=== PATIENT | male | born 1940 | race Caucasian/White ===

== ENCOUNTER 2017-07-28 16:38 | Emergency (ER) | payer MEDICARE, BC ==
--- NOTE | 2017-07-28 16:55 | EDM.PDOC ---
ED HPI GENERAL MEDICAL PROBLEM - General Chief Complaint: General Stated Complaint: [id number] FELL AT HOME BROKEN RIB? Time Seen by Provider: 07/28/17 16:50 Source of Information: Reports: Patient, Family (Two adult women) History Limitations: Reports: No Limitations - History of Present Illness INITIAL COMMENTS - FREE TEXT/NARRATIVE: 77 yo white male w/ Multiple Medical problems brought in by family stating that he became unsteady upon rising at 10 AM and w/o his walker he fell onto left side w/ c/o left lower rib pain. No LOC. Family members present Onset: Today Onset Date: 07/28/17 Onset Time: 10:00 Duration: Hour(s): Location: Reports: Chest (left lower ) Quality: Reports: Ache Severity: Moderate Improves with: Reports: Rest Worsens with: Reports: Movement Context: Reports: Trauma Associated Symptoms: Reports: No Other Symptoms - Related Data Allergies Allergy/AdvReac Type Severity Reaction Status Date / Time [id number] Reductase AdvReac Severe Severe Verified 07/30/16 06:54 Inhibitor muscle aches to all statins. Home Meds: Home Meds Gemfibrozil 600 mg PO BIDAC 09/18/13 [History] Insulin NPH Hum/Reg Insulin Hm [Novolin 70-30 100 Unit/ml Vial] 18 units SUBCUT BIDAC 09/18/13 [History] Lisinopril 5 mg PO DAILY 09/18/13 [History] Mycophenolate [Myfortic] 720 mg PO BID 09/18/13 [History] risperiDONE [RisperiDAL] 2 mg PO BEDTIME 09/18/13 [History] Tacrolimus 1 mg PO BID 10/06/13 [History] Acetaminophen [Tylenol Extra Strength] 500 mg PO Q6H PRN 04/09/14 [History] Aspirin [Ecotrin] 81 mg PO DAILY 04/09/14 [History] Glucosamine [Glucosamine Sulfate] 1,000 mg PO BID 04/09/14 [History] Docusate Sodium [Colace] 100 mg PO DAILY PRN 06/04/16 [History] Magnesium Oxide [Magnesium] 400 mg PO PCDINNER 06/04/16 [History] Magnesium Oxide [Magnesium] 800 mg PO DAILY 06/04/16 [History] Metoprolol Succinate [Toprol XL] 50 mg PO DAILY 06/04/16 [History] Tamsulosin [Flomax] 0.8 mg PO DAILY 06/04/16 [History] Warfarin Sodium [Jantoven] 2 mg PO DAILY 06/04/16 [History] Past Medical History HEENT History: Reports: Impaired Vision Cardiovascular History: Reports: Heart Valve Replacement, High Cholesterol, Hypertension, Stents Respiratory History: Reports: None Gastrointestinal History: Reports: None Genitourinary History: Reports: Other (See Below) Other Genitourinary History: hx kidney transplant Musculoskeletal History: Reports: None Neurological History: Reports: None Psychiatric History: Reports: Depression Endocrine/Metabolic History: Reports: Diabetes, Type I Hematologic History: Reports: Anemia Immunologic History: Reports: None Oncologic (Cancer) History: Reports: Basal Cell Carcinoma, Renal, Other (See Below) Other Oncologic History: renal transplant Dermatologic History: Reports: Other (See Below) Other Dermatologic History: skin cancer left cheek - Infectious Disease History Infectious Disease History: Reports: None - Past Surgical History Male Surgical History: Reports: Nephrectomy Social & Family History - Family History Family Medical History: Noncontributory - Tobacco Use Smoking Status *Q: Never Smoker Years of Tobacco use: 15 Used Tobacco, but Quit: Yes Month Tobacco Last Used: August Second Hand Smoke Exposure: No - Caffeine Use Caffeine Use: Reports: Coffee - Alcohol Use Days Per Week of Alcohol Use: 0 - Recreational Drug Use Recreational Drug Use: No - Living Situation & Occupation Living situation: Reports: , with Family Occupation: Disabled ED ROS GENERAL - Review of Systems Review Of Systems: See Below Constitutional: Reports: Weakness HEENT: Reports: No Symptoms Respiratory: Reports: No Symptoms Cardiovascular: Reports: No Symptoms Endocrine: Reports: No Symptoms GI/Abdominal: Reports: No Symptoms : Reports: No Symptoms Musculoskeletal: Reports: Other (left lower rib pain) Skin: Reports: No Symptoms Neurological: Reports: Difficulty Walking, Weakness, Gait Disturbance Psychiatric: Reports: No Symptoms Hematologic/Lymphatic: Reports: No Symptoms Immunologic: Reports: No Symptoms ED EXAM, GENERAL - Physical Exam Exam: See Below General Appearance: Alert, No Apparent Distress Eye Exam: Bilateral Eye: EOMI, PERRL Ears: Normal External Exam Nose: Normal Inspection Throat/Mouth: Normal Inspection, Normal Lips Head: Atraumatic, Normocephalic Neck: Normal Inspection, Supple, Full Range of Motion Respiratory/Chest: No Respiratory Distress, Lungs Clear, Other (left lower chest wall tenderness) Cardiovascular: Normal Peripheral Pulses, Regular Rate, Rhythm, No Edema Peripheral Pulses: 2+: Radial (L), Radial (R) GI/Abdominal: Normal Bowel Sounds, Soft Back Exam: Normal Inspection Extremities: Normal Inspection, Normal Range of Motion Neurological: Alert Psychiatric: Normal Affect Skin Exam: Warm, Dry Lymphatic: No Adenopathy Course - Vital Signs Text/Narrative:: CT Head Negative for Bleed CXR WNL - Orders/Labs/Meds Orders: Active Orders 24 hr Category Date Time Status EKG Documentation Completion [RC] STAT Care 07/28/17 16:46 Active URINALYSIS W/MICROSCOPIC [UA W/MICROSCOPIC] [URIN] Stat Lab 07/28/17 18:00 Results Labs: Laboratory Tests 07/28/17 07/28/17 07/28/17 Range/Units 16:59 16:59 16:59 WBC 8.9 (5.0-10.0) 10^3/uL RBC 3.50 L (4.6-6.2) 10^6/uL Hgb 9.9 L (14.0-18.0) g/dL Hct 31.0 L (40.0-54.0) % MCV 88.6 (80-100) fL MCH 28.3 (27.0-34.0) pg MCHC 31.9 L (33.0-35.0) g/dL Plt Count 259 (150-450) 10^3/uL Neut % (Auto) 80.0 H (42.2-75.2) % Lymph % (Auto) 8.6 L (20.5-50.1) % [place] % (Auto) 10.9 H (2-8) % Eos % (Auto) 0.2 L (1.0-3.0) % Baso % (Auto) 0.3 (0.0-1.0) % PT 30.7 H (9.0-12.0) SEC INR 3.0 H (0.9-1.2) APTT 38.7 H (22.0-34.0) SEC Sodium 134 L (135-145) mmol/L Potassium 5.0 (3.6-5.0) mmol/L Chloride 102 (101-111) mmol/L Carbon Dioxide 21.0 (21.0-31.0) mmol/L Anion Gap 16.0 BUN 33 H (7-18) mg/dL Creatinine 1.6 H (0.6-1.3) mg/dL Est Cr Clr Drug Dosing TNP Estimated GFR (MDRD) 42 BUN/Creatinine Ratio 20.62 Glucose 151 H (74-105) mg/dL Calcium 10.0 (8.4-10.2) mg/dl Total Bilirubin 0.8 (0.2-1.0) mg/dL AST 21 (10-42) IU/L ALT 13 (10-60) IU/L Alkaline Phosphatase 93 (42-121) IU/L Troponin I 0.02 (0.00-0.02) ng/ml Total Protein 7.4 (6.7-8.2) g/dl Albumin 4.0 (3.2-5.5) g/dl Globulin 3.4 Albumin/Globulin Ratio 1.18 Urine Color (YELLOW) Urine Appearance (CLEAR) Urine pH (5.0-9.0) Ur Specific Crum (1.005-1.030) Urine Protein (NEGATIVE) Urine Glucose (UA) (NEGATIVE) Urine Ketones (NEGATIVE) Urine Occult Blood (NEGATIVE) Urine Nitrite (NEGATIVE) Urine Bilirubin (NEGATIVE) Urine Urobilinogen (0.2-1.0) mg/dL Ur Leukocyte Esterase (NEGATIVE) 07/28/ Range/Units 18:00 WBC (5.0-10.0) 10^3/uL RBC (4.6-6.2) 10^6/uL Hgb (14.0-18.0) g/dL Hct (40.0-54.0) % MCV (80-100) fL MCH (27.0-34.0) pg MCHC (33.0-35.0) g/dL Plt Count (150-450) 10^3/uL Neut % (Auto) (42.2-75.2) % Lymph % (Auto) (20.5-50.1) % [place] % (Auto) (2-8) % Eos % (Auto) (1.0-3.0) % Baso % (Auto) (0.0-1.0) % PT (9.0-12.0) SEC INR (0.9-1.2) APTT (22.0-34.0) SEC Sodium (135-145) mmol/L Potassium (3.6-5.0) mmol/L Chloride (101-111) mmol/L Carbon Dioxide (21.0-31.0) mmol/L Anion Gap BUN (7-18) mg/dL Creatinine (0.6-1.3) mg/dL Est Cr Clr Drug Dosing Estimated GFR (MDRD) BUN/Creatinine Ratio Glucose (74-105) mg/dL Calcium (8.4-10.2) mg/dl Total Bilirubin (0.2-1.0) mg/dL AST (10-42) IU/L ALT (10-60) IU/L Alkaline Phosphatase (42-121) IU/L Troponin I (0.00-0.02) ng/ml Total Protein (6.7-8.2) g/dl Albumin (3.2-5.5) g/dl Globulin Albumin/Globulin Ratio Urine Color Yellow (YELLOW) Urine Appearance Cloudy (CLEAR) Urine pH 7.0 (5.0-9.0) Ur Specific Crum 1.015 (1.005-1.030) Urine Protein 100 H (NEGATIVE) Urine Glucose (UA) 100 H (NEGATIVE) Urine Ketones Negative (NEGATIVE) Urine Occult Blood Trace-lysed H (NEGATIVE) Urine Nitrite Negative (NEGATIVE) Urine Bilirubin Negative (NEGATIVE) Urine Urobilinogen 0.2 (0.2-1.0) mg/dL Ur Leukocyte Esterase Negative (NEGATIVE) Departure - Departure Time of Disposition: 18:22 Disposition: Home, Self-Care 01 Condition: Good Clinical Impression: Gait instability Fall Qualifiers: Encounter type: initial encounter Qualified Code(s): W19.XXXA - Unspecified fall, initial encounter Contusion of left chest wall Qualifiers: Encounter type: initial encounter Qualified Code(s): S20.212A - Contusion of left front wall of thorax, initial encounter Head contusion Qualifiers: Encounter type: initial encounter Contusion of head detail: scalp Qualified Code(s): S00.03XA - Contusion of scalp, initial encounter - Discharge Information Forms: ED Department Discharge Additional Instructions: Rest Apply Ice Pack to areas of pain TID X 15 mins For Pain: TYLENOL EXTRA STRENGTH 500mg QID (otc) ALWAYS USE GAIT ASSIST DEVICES WHEN STANDING ie.( WALKER ) F/U w/ PCP - My Orders Last 24 Hours: My Active Orders 07/28/17 16:46 EKG Documentation Completion [RC] STAT 07/28/17 18:00 URINALYSIS W/MICROSCOPIC [UA W/MICROSCOPIC] [URIN] Stat - Assessment/Plan Last 24 Hours: My Active Orders 07/28/17 16:46 EKG Documentation Completion [RC] STAT 07/28/17 18:00 URINALYSIS W/MICROSCOPIC [UA W/MICROSCOPIC] [URIN] Stat
[2017-07-28 17:28] LABS: CHLORIDE,CL 102 mmol/L (101-111); SODIUM,NA 134 mmol/L (135-145)
--- NOTE | 2017-08-01 15:00 | EKG ---
07/28/2017 - JOHAN JOLLEY - FINDINGS: This 12-lead EKG shows a normal sinus rhythm with a ventricular rate of 76. First-degree AV block. Left bundle-branch block. [facility] /[id number]
== END 2017-07-28 18:37 | disposition home or self-care (01) ==
LOC: DL.ED 16:38
DX: S20.212A Contusion of left front wall of thorax, initial encounter (principal); S00.03XA Contusion of scalp, initial encounter; R26.9 Unspecified abnormalities of gait and mobility; I10 Essential (primary) hypertension; E10.9 Type 1 diabetes mellitus without complications; Z79.4 Long term (current) use of insulin; Z79.82 Long term (current) use of aspirin; Z79.01 Long term (current) use of anticoagulants; Z79.899 Other long term (current) drug therapy; W19.XXXA Unspecified fall, initial encounter
CPT/HCPCS: 36415; 70450; 71010; 80053; 81001; 84484; 85025; 85610; 85730; 87086; 87088; 87186; 93005; 93010; 99284; 99291; 99292

== ENCOUNTER 2017-10-21 12:59 | Inpatient (IN) | payer MEDICARE, BC ==
[2017-10-21] MEDS ORDERED: Acetaminophen 325 MG Tab PO PRN (14:38)
[2017-10-21] MEDS ORDERED: Acetaminophen 500 MG Tab PO PRN (14:50)
[2017-10-21] MEDS ORDERED: Docusate Sodium 100 MG Cap PO PRN (14:50)
[2017-10-21] MEDS ORDERED: Furosemide 40 MG/4 ML VIAL IVPUSH PRN (14:59)
--- NOTE | 2017-10-21 15:07 | PCM.HP ---
H&P History of Present Illness - General Date of Service: 10/21/17 Admit Problem/Dx: Admission Diagnosis/Problem Admission Diagnosis/Problem Weakness of right upper extremity Source of Information: Patient, Family History Limitations: Reports: No Limitations - History of Present Illness Initial Comments - Free Text/Narative: Abdoul Taverasis a 77 y.o. male with multiple comorbid including AoVR , DM , CAD, renal transplant, CKD, chronic anemia. He was transferred from clinic account of progressive weakness and acute on chronic anemia. Patient was seen in the clinic as a routine follow up. The spouse who accompanied patient reported patient is getting progressively weak. She notes similar episode in the past for which he was given transfusion for anemia and was wondering if patient is anemic. Labs in the clinic revealed Hb of 8.4 down from 9.3 in 2017. He was supra therapeutic at >5 with no active bleeding. He denies any evidence of bleeding. 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 He denies melena, hematochezia, abdominal pain, hematuria. Patient is on warfarin anticoagulation for aortic valve replacement. Spouse also reports weight loss over the period. She notes patient generally has not been eating well but his appetite has decreased over the past few weeks. Patient denies anorexia, abdominal pain, nausea, vomiting, fever or chills. No chest pain or SOB. No h/o of falls. Onset of Symptoms: Reports: Gradual Duration of Symptoms: Reports: Week(s): Location: Reports: Generalized Severity: Moderate Improves with: Reports: None Worsens with: Reports: None Associated Symptoms: Reports: No Other Symptoms - Related Data Allergies/Adverse Reactions: Allergies Allergy/AdvReac Type Severity Reaction Status Date / Time [id number]-Ibu Reductase AdvReac Severe Severe Verified 10/21/17 13:58 Inhibitor muscle aches to all statins. Home Medications: Home Meds Gemfibrozil 600 mg PO BID 09/18/13 [History] Insulin NPH Hum/Reg Insulin Hm [Novolin 70-30 100 Unit/ml Vial] 12 units SUBCUT WITHBREAKFAST 09/18/13 [History] Lisinopril 5 mg PO BEDTIME 09/18/13 [History] Mycophenolate [Myfortic] 720 mg PO BID 09/18/13 [History] risperiDONE [RisperiDAL] 2 mg PO BEDTIME 09/18/13 [History] Tacrolimus 1 mg PO BID 10/06/13 [History] Acetaminophen [Tylenol Extra Strength] 500 mg PO Q6H PRN 04/09/14 [History] Aspirin [Ecotrin] 81 mg PO DAILY 04/09/14 [History] Docusate Sodium [Colace] 100 mg PO DAILY PRN 06/04/16 [History] Metoprolol Succinate [Toprol XL] 25 mg PO DAILY 06/04/16 [History] Tamsulosin [Flomax] 0.8 mg PO BEDTIME 06/04/16 [History] Warfarin Sodium [Jantoven] 2 mg PO BEDTIME 06/04/16 [History] Amoxicillin/Potassium Clav [Amox Tr-K Clv 875-125 mg Tab] 1 tab PO Q12H [History] Insulin Asp Prot/Insulin Asp [NovoLOG Mix 70-30] 10 units SQ BEDTIME 10/21/17 [ History] Magnesium 200 mg PO DAILY 10/21/17 [History] Past Medical History HEENT History: Reports: Cataract, Hard of Hearing, Impaired Vision, Other (See Below) Other 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, torn retina Cardiovascular History: Reports: Heart Valve Replacement, High Cholesterol, Hypertension, Stents Respiratory History: Reports: None Gastrointestinal History: Reports: None Genitourinary History: Reports: Urinary Incontinence, Other (See Below) Other Genitourinary History: hx kidney transplant Musculoskeletal History: Reports: Arthritis, Fracture Neurological History: Reports: None Psychiatric History: Reports: Depression Endocrine/Metabolic History: Reports: Diabetes, Type I Hematologic History: Reports: Anemia Immunologic History: Reports: None Oncologic (Cancer) History: Reports: Basal Cell Carcinoma, Renal, Other (See Below) Other Oncologic History: renal transplant, left cheek and right ear CA Dermatologic History: Reports: Other (See Below) Other Dermatologic History: skin cancer left cheek, skin CA right ear - Infectious Disease History Infectious Disease History: Reports: Shingles - Past Surgical History HEENT Surgical History: Reports: Cataract Surgery, Other (See Below) Other HEENT Surgeries/Procedures: skin CA surgery right ear, eye lid surgery Cardiovascular Surgical History: Reports: Valve Replacement, Other (See Below) Other Cardiovascular Surgeries/Procedures: cardiac stents GI Surgical History: Reports: None Male Surgical History: Reports: Nephrectomy Endocrine Surgical History: Reports: None Musculoskeletal Surgical History: Reports: Hip Replacement Dermatological Surgical History: Reports: Skin Biopsy Social & Family History - Family History Family Medical History: Noncontributory - Tobacco Use Smoking Status *Q: Former Smoker Years of Tobacco use: 15 Used Tobacco, but Quit: Yes Month Tobacco Last Used: August Second Hand Smoke Exposure: No - Caffeine Use Caffeine Use: Reports: Coffee, Soda - Alcohol Use Days Per Week of Alcohol Use: 0 - Recreational Drug Use Recreational Drug Use: No - Living Situation & Occupation Living situation: Reports: , with Family Occupation: Disabled H&P Review of Systems - Review of Systems: Review Of Systems: See Below General: Reports: No Symptoms HEENT: Reports: No Symptoms Pulmonary: Reports: No Symptoms Cardiovascular: Reports: No Symptoms Gastrointestinal: Reports: No Symptoms Genitourinary: Reports: No Symptoms Musculoskeletal: Reports: No Symptoms Skin: Reports: No Symptoms Psychiatric: Reports: No Symptoms Neurological: Reports: No Symptoms Hematologic/Lymphatic: Reports: No Symptoms Immunologic: Reports: No Symptoms Exam - Exam Exam: See Below - Vital Signs Weight: 136 lb 12.8 oz - Exam General: Alert, Oriented, 4 HEENT: Conjunctiva Clear, EACs Clear, EOMI, Hearing Intact, Mucosa Moist & [place] , Nares Patent, Normal Nasal Septum, Posterior Pharynx Clear, TMs Clear, Scleral Icterus, PERRLA Neck: Supple, Trachea Midline, 2 Lungs: Clear to Auscultation, Normal Respiratory Effort Cardiovascular: Regular Rate, Regular Rhythm GI/Abdominal Exam: Normal Bowel Sounds, Soft, Non-Tender, No Organomegaly, No Distention, No Abnormal Bruit, No Mass, Pelvis Stable (Male) Exam: No Hernia, Normal Inspection, Normal Prostate, Circumcised Rectal (Males) Exam: Normal Exam, Normal Rectal Tone, Prostate Normal Back Exam: Normal Inspection, Full Range of Motion, NT Extremities: Normal Inspection, Normal Range of Motion, Non-Tender, No Pedal Edema, Normal Capillary Refill Skin: Warm, Dry, Intact Neurological: Cranial Nerves Intact, Reflexes Equal Bilateral Neuro Extensive - Mental Status: Alert, Oriented x3, Normal Mood/Affect, Normal Cognition Neuro Extensive - Motor, Sensory, Reflexes: CN II-XII Intact, Normal Gait, Normal Reflexes Psychiatric: Alert, Normal Affect, Normal Mood - Patient Data Result Diagrams: 10/21/17 15:12 10/21/17 15:12 *Q Meaningful Use (ADM) - VTE *Q VTE Criteria *Q: VTE Mechanical Contraindications *Q: At Risk for Falls - Stroke *Q Stroke Criteria *Q: - AMI *Q AMI Criteria *Q: - Problem List (1) Weakness generalized SNOMED Code(s): 12920186 ICD Code: R53.1 - WEAKNESS Status: Acute Priority: High Current Visit: Yes (2) Anemia SNOMED Code(s): 070092630 ICD Code: D64.9 - ANEMIA, UNSPECIFIED Status: Acute Priority: High Current Visit: Yes Problem List Initiated/Reviewed/Updated: Yes Orders Last 24hrs: Active Orders 24 hr Category Date Time Status Patient Status [ADT] Routine ADT 10/21/17 14:38 Ordered Antiembolic Devices [RC] PER UNIT ROUTINE Care 10/21/17 14:48 Ordered Bedrest Bathroom Privileges [RC] ASDIRECTED Care 10/21/17 14:38 Ordered Cardiac Monitoring [RC] CONTINUOUS Care 10/21/17 14:43 Ordered Oxygen Therapy [RC] PRN Care 10/21/17 14:38 Ordered Up With Assistance [RC] ASDIRECTED Care 10/21/17 14:38 Ordered Up to Chair [RC] ASDIRECTED Care 10/21/17 14:38 Ordered VTE/DVT Education [RC] PER UNIT ROUTINE Care 10/21/17 14:38 Ordered Vital Signs [RC] Q4H Care 10/21/17 14:38 Ordered Regular Diet [DIET] Diet 10/21/17 Dinner Ordered BASIC METABOLIC PANEL,BMP [CHEM] Routine Lab 10/21/17 14:38 Ordered CBC WITH AUTO DIFF [HEME] Routine Lab 10/21/17 14:38 Ordered HEPATIC FUNCTION PANEL,HFP [CHEM] Routine Lab 10/21/17 14:38 Ordered PHOSPHORUS [CHEM] Routine Lab 10/21/17 14:57 Ordered TYPE AND SCREEN [BBK] Routine Lab 10/21/17 14:57 Ordered Acetaminophen [Tylenol Extra Strength] Med 10/21/17 14:50 Ordered 500 mg PO Q6H PRN Amoxicillin/Clavulanate K [Augmentin 875 MG/125 MG] Med 10/21/17 15:00 Ordered 1 tab PO Q12H Aspirin [Halfprin] Med 10/22/17 09:00 Ordered 81 mg PO DAILY Docusate Sodium [Colace] Med 10/21/17 14:50 Ordered 100 mg PO DAILY PRN Furosemide [Lasix] Med 10/21/17 14:59 Ordered 40 mg IVPUSH ASDIRECTED PRN Gemfibrozil [Lopid] Med 10/21/17 21:00 Ordered 600 mg PO BID Insulin Asp Prot/Insulin Asp [NovoLOG Mix 70-30] Med 10/21/17 21:00 Ordered 10 units SQ BEDTIME Insulin NPH/Insulin Reg,Human [NovoLIN 70-30] Med 10/22/17 08:00 Ordered 12 unit SUBCUT WITHBREAKFAST Lisinopril [Prinivil] Med 10/21/17 21:00 Ordered 5 mg PO BEDTIME Magnesium [Magnesium] Med 10/22/17 09:00 Ordered 200 mg PO DAILY Metoprolol Succinate [Toprol XL] Med 10/22/17 09:00 Ordered 25 mg PO DAILY Mycophenolate [Myfortic] Med 10/21/17 21:00 Ordered 720 mg PO BID Tacrolimus Med 10/21/17 21:00 Ordered 1 mg PO BID Tamsulosin [Flomax] Med 10/21/17 21:00 Ordered 0.8 mg PO BEDTIME risperiDONE [RisperiDAL] Med 10/21/17 21:00 Ordered 2 mg PO BEDTIME Sequential Compression Device [OM.PC] Per Unit Routine Oth 10/21/17 14:46 Ordered Transfuse PRBC [Transfuse Red Blood Cells] [COMM] Oth 10/21/17 14:57 Ordered Routine VTE Mechanical Contraindications [AST] Per Unit Routine Oth 10/21/17 14:38 Ordered Resuscitation Status Routine Resus Stat 10/21/17 14:38 Ordered Medication Orders Acetaminophen (Tylenol Extra Strength) 500 mg PO Q6H PRN PRN Reason: Pain Amoxicillin/Clavulanate Potassium (Augmentin 875 Mg/125 Mg) 1 tab PO Q12HR CHARLES Stop: 10/27/17 21:01 Aspirin (Halfprin) 81 mg PO DAILY CHARLES Docusate Sodium (Colace) 100 mg PO DAILY PRN PRN Reason: Constipation Furosemide (Lasix) 40 mg IVPUSH ASDIRECTED PRN PRN Reason: fluid overload Gemfibrozil (Lopid) 600 mg PO BIDAC CHARLES Insulin Human Isoph/Insulin Regular (Novolin 70-30) 12 unit SUBCUT WITHBREAKFAST CHARLES Lisinopril (Prinivil) 5 mg PO BEDTIME CHARLES Metoprolol Succinate (Toprol Xl) 25 mg PO DAILY CHARLES Non-Formulary Medication (Insulin Asp Prot/Insulin Asp [Novolog Mix 70-30]) 10 units SQ BEDTIME CHARLES Non-Formulary Medication (Magnesium [Magnesium]) 200 mg PO DAILY CHARLES Non-Formulary Medication (Mycophenolate [Myfortic]) 720 mg PO BID CHARLES Non-Formulary Medication (Tacrolimus) 1 mg PO BID CHARLES Risperidone (Risperidal) 2 mg PO BEDTIME CHARLES Tamsulosin HCl (Flomax) 0.8 mg PO BEDTIME CHARLES Assessment/Plan Comment:: Assessment/Plan #Acute on chronic anemia. Etiology unclear -Patient presented with Hb of 8.4 <<9.3. -Repeat Hb was 6.7 -Patient is supra therapeutic but not actively bleeding -Type and screen -Stool occult screen -Transfuse with 2 units of pRBC -Post transfusion h/h -Monitor h/h q4h -Iron studies, Folate, Vit B12, TSH #Generalized weakness. -This might be due to acute anemia -will transfuse as above -PT/OT #Supra therapeutic INR -Patient not actively bleeding -Will give Vit K 5 mg PO -Daily INR -Hold Coumadin for now #DM-II -Controlled -Monitor FSG 4x daily -Reconcile home medication #S/p AVR -Hold off Coumadin in view of supra therapeutic INR #h/o CAD -Stable. Patient has no chest pain -resume home medications #s/p renal transplant -Resume home immunosuppresants #CDK -Stable cratinin and GFR -monitor renal functions #Diet -Regular #DVT ppx -SCD #Code status -DNI/DNR
[2017-10-21] MEDS ORDERED: Phytonadione ORAL 2.5mg/2.5ml Soln Simple Syrup U/D PO ONE (15:42)
[2017-10-21] MEDS: Amoxicillin/Clavulanate K 875-125 MG Tab PO SCH ×2 (15:42→20:38)
[2017-10-21 15:49] LABS: ANION GAP 12.7
[2017-10-21] MEDS ORDERED: Sodium Chloride 0.9% 10 ML Syringe FLUSH PRN (16:13)
[2017-10-21] MEDS: Gemfibrozil 600 MG Tab PO SCH (16:58)
[2017-10-21] MEDS: Insulin Aspart 100 Units/ML 3 ML Pen SUBCUT SCH ×2 (17:17→21:26)
[2017-10-21] MEDS: TACROLIMUS 1 MG PO SCH (20:36)
[2017-10-21] MEDS: MYCOPHENOLIC ACID 360 MG PO SCH (20:37)
[2017-10-21] MEDS ORDERED: Tamsulosin 0.4 MG Cap.ER PO SCH (21:00)
[2017-10-21] MEDS ORDERED: INSULIN ASPART SQ SCH (21:00)
[2017-10-21] MEDS ORDERED: Simethicone 80 MG Tab.Chew PO ONE (21:00)
[2017-10-21] MEDS ORDERED: INSULIN ASPART PROTAMINE SQ SCH (21:00)
[2017-10-21] MEDS ORDERED: [UNRECOGNIZED DRUG - OTHER] SQ SCH (21:00)
[2017-10-21] MEDS ORDERED: Lisinopril 5 MG Tab PO SCH (21:00)
[2017-10-21] MEDS ORDERED: risperiDONE 1 MG Tab PO SCH (21:00)
[2017-10-22] MEDS: Gemfibrozil 600 MG Tab PO SCH (05:45)
[2017-10-22] MEDS ORDERED: Simethicone 80 MG Tab.Chew PO ONE (06:00)
[2017-10-22] MEDS ORDERED: Insulin NPH/Insulin Regular,Human 70-30 100 Units/ML 10 ML Vial SUBCUT SCH (08:00)
[2017-10-22] MEDS ORDERED: Aspirin 81 MG Tab.EC PO SCH (09:00)
[2017-10-22] MEDS ORDERED: Metoprolol Succinate 25 MG Tab.ER PO SCH (09:00)
[2017-10-22] MEDS ORDERED: Phytonadione ORAL 2.5mg/2.5ml Soln Simple Syrup U/D PO ONE (09:04)
[2017-10-22] MEDS: TACROLIMUS 1 MG PO SCH (09:20)
[2017-10-22] MEDS: MYCOPHENOLIC ACID 360 MG PO SCH (09:20)
[2017-10-22] MEDS: Amoxicillin/Clavulanate K 875-125 MG Tab PO SCH (09:21)
--- NOTE | 2017-10-22 09:32 | US ---
Clinical history: 77-year-old male with history "kidney transplant" and abnormally elevated liver fun ction tests. Interpretation: Liver homogeneously dense, normal size and anatomic configuration without discrete intrahepatic cysti c or solid mass lesion or abnormal dilatation of the intra/extrahepatic biliary ducts (common hepatic duct 4.9 mm and the common bile duct 7.8 mm diameter). Gallbladder distended in the right upper quadrant shows no sign of pericystic fluid, mucosal wall corey yp or mobile dependent intraluminal echogenic "shadowing" gallstones. Pancreas fractionally visualized (technically "difficult" patient who could not move or hold breath). No ascites. Neither kidney satisfactorily demonstrated. CONCLUSION: No intrahepatic abnormalities. Normal gallbladder. No ascites.
[2017-10-22] MEDS: Insulin Aspart 100 Units/ML 3 ML Pen SUBCUT SCH ×2 (09:40→11:29)
[2017-10-22] MEDS ORDERED: Pantoprazole 40 MG in Sodium Chloride 0.9% 100 ML IV SCH (10:00)
[2017-10-22] MEDS ORDERED: Sodium Chloride 0.9% 1,000 ML IV SCH (10:00)
[2017-10-22] MEDS ORDERED: Pantoprazole 40 MG Vial IVPUSH SCH (10:15)
--- NOTE | 2017-10-22 11:42 | PCM.DCSUM1 ---
Discharge Summary - Hospital Course HPI Initial Comments: Abdoul Taverasis a 77 y.o. male with multiple comorbid including AoVR , DM , CAD, renal transplant, CKD, chronic anemia. He was transferred from clinic on account of progressive weakness and acute on chronic anemia. Patient was seen in the clinic as a routine follow up. The spouse who accompanied patient reported patient is getting progressively weak. She reproted similar episode in the past for which he was given transfusion for anemia and was wondering if patient is anemic. Labs in the clinic revealed Hb of 8.4 down from 9.3 in 2017. He was supra therapeutic at >5 with no active bleeding. Repeat cbc on admission revealed further drop in Hb to 6.3. He denied any evidence of bleeding. 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 He denied melena, hematochezia, abdominal pain, hematuria. Patient is on warfarin anticoagulation for aortic valve replacement. He was admitted for acute on chronic anemia. He recieved 2 units of pRBC. Post trasnfusion Hb was 10.1. Occult blood screen overnight was positive. INR this morning was 6.5. PAtient has recived 10 mg of Vit. K. On evaluation this morning he denies active bleeding per rectum but abdominal appears distended. He is being transfer to [facility] for furher evaluation. - Discharge Data Discharge Date: 10/22/17 Discharge Disposition: DC/Tfer to Acute Hospital 02 Condition: Good - Discharge Diagnosis/Problem(s) (1) Weakness generalized SNOMED Code(s): 90654954 ICD Code: R53.1 - WEAKNESS Status: Acute Priority: High Current Visit: Yes (2) Anemia SNOMED Code(s): 314323761 ICD Code: D64.9 - ANEMIA, UNSPECIFIED Status: Acute Priority: High Current Visit: Yes (3) GI bleed SNOMED Code(s): 00763454 ICD Code: K92.2 - GASTROINTESTINAL HEMORRHAGE, UNSPECIFIED Status: Acute Current Visit: Yes Qualifiers: GI bleed type/associated pathology: unspecified gastrointestinal hemorrhage type Qualified Code(s): K92.2 - Gastrointestinal hemorrhage, unspecified (4) GI bleed SNOMED Code(s): 43376630 ICD Code: K92.2 - GASTROINTESTINAL HEMORRHAGE, UNSPECIFIED Status: Acute Current Visit: Yes - Discharge Plan Home Medications: Home Meds Gemfibrozil 600 mg PO BID 09/18/13 [History] Lisinopril 5 mg PO BEDTIME 09/18/13 [History] Mycophenolate [Myfortic] 720 mg PO BID 09/18/13 [History] risperiDONE [RisperiDAL] 2 mg PO BEDTIME 09/18/13 [History] Tacrolimus 1 mg PO BID 10/06/13 [History] Acetaminophen [Tylenol Extra Strength] 500 mg PO Q6H PRN 04/09/14 [History] Aspirin [Ecotrin] 81 mg PO DAILY 04/09/14 [History] Docusate Sodium [Colace] 100 mg PO DAILY PRN 06/04/16 [History] Metoprolol Succinate [Toprol XL] 25 mg PO DAILY 06/04/16 [History] Tamsulosin [Flomax] 0.8 mg PO BEDTIME 06/04/16 [History] Warfarin Sodium [Jantoven] 2 mg PO BEDTIME 06/04/16 [History] Amoxicillin/Potassium Clav [Amox Tr-K Clv 875-125 mg Tab] 1 tab PO Q12H [History] Insulin Asp Prot/Insulin Asp [NovoLOG Mix 70-30] 10 units SQ BEDTIME 10/21/17 [ History] Insulin Asp Prot/Insulin Asp [NovoLOG Mix 70-30] 12 units SQ WITHBREAKFAST 10/21 [History] Magnesium 200 mg PO DAILY 10/21/17 [History] - Discharge Summary/Plan Comment DC Time >30 min.: Yes Discharge Summary/Plan Comment: Transfer to [facility] for further evaluation. - General Info Admission Dx/Problem (Free Text: Admission Diagnosis/Problem Admission Diagnosis/Problem Weakness of right upper extremity Functional Status: Reports: Pain Controlled - Review of Systems General: Reports: No Symptoms HEENT: Reports: No Symptoms Pulmonary: Reports: No Symptoms Cardiovascular: Reports: No Symptoms Gastrointestinal: Reports: No Symptoms Genitourinary: Reports: No Symptoms Musculoskeletal: Reports: No Symptoms Skin: Reports: No Symptoms Neurological: Reports: No Symptoms Psychiatric: Reports: No Symptoms - Patient Data Vitals - Most Recent: Last Vital Signs Temp 98.4 F 10/22/17 07:00 Pulse 80 10/22/17 09:23 Resp 20 10/22/17 07:00 BP 150/83 H 10/22/17 09:23 Pulse Ox 99 10/22/17 07:00 Weight - Most Recent: 136 lb 12.8 oz I&O - Last 24 hours: Intake & Output 10/21/17 10/22/17 10/22/17 22:59 06:59 14:59 Intake Total 549 850 Output Total 200 1000 Balance 349 -150 Lab Results - Last 24 hrs: Laboratory Results - last 24 hr 10/21/17 10/21/17 10/21/17 Range/Units 15:12 15:12 15:12 WBC 4.6 L (5.0-10.0) 10^3/uL RBC 2.44 L (4.6-6.2) 10^6/uL Hgb 6.9 L D (14.0-18.0) g/dL Hct 20.8 L* (40.0-54.0) % MCV 85.2 D (80-100) fL MCH 28.3 (27.0-34.0) pg MCHC 33.2 (33.0-35.0) g/dL Plt Count 236 (150-450) 10^3/uL Neut % (Auto) 81.2 H (42.2-75.2) % Lymph % (Auto) 5.7 L (20.5-50.1) % Lane % (Auto) 12.9 H (2-8) % Eos % (Auto) 0.0 L (1.0-3.0) % Baso % (Auto) 0.2 (0.0-1.0) % PT (9.0-12.0) SEC INR (0.9-1.2) Sodium 132 L (135-145) mmol/L Potassium 3.7 (3.6-5.0) mmol/L Chloride 104 (101-111) mmol/L Carbon Dioxide 19.0 L (21.0-31.0) mmol/L Anion Gap 12.7 BUN 30 H (7-18) mg/dL Creatinine 1.4 H (0.6-1.3) mg/dL Est Cr Clr Drug Dosing 36.13 mL/min Estimated GFR (MDRD) 49 Glucose 144 H (74-105) mg/dL POC Glucose (83-110) mg/dl Calcium 9.0 (8.4-10.2) mg/dl Phosphorus 3.0 (2.5-4.6) mg/dL Total Bilirubin 3.9 H (0.2-1.0) mg/dL Direct Bilirubin 2.4 H (0.0-0.2) mg/dL Indirect Bilirubin 1.5 AST 37 (10-42) IU/L ALT 29 (10-60) IU/L Alkaline Phosphatase 483 H (42-121) IU/L Total Protein 5.7 L (6.7-8.2) g/dl Albumin 2.6 L (3.2-5.5) g/dl Globulin 3.1 Albumin/Globulin Ratio 0.84 Urine Color (YELLOW) Urine Appearance (CLEAR) Urine pH (5.0-9.0) Ur Specific Glen (1.005-1.030) Urine Protein (NEGATIVE) Urine Glucose (UA) (NEGATIVE) Urine Ketones (NEGATIVE) Urine Occult Blood (NEGATIVE) Urine Nitrite (NEGATIVE) Urine Bilirubin (NEGATIVE) Urine Urobilinogen (0.2-1.0) mg/dL Ur Leukocyte Esterase (NEGATIVE) Urine RBC /HPF Urine WBC (0-5/HPF) /HPF Ur Epithelial Cells /HPF Urine Bacteria (0-FEW/HPF) /HPF Blood Type Gel Antibody Screen Crossmatch 10/21/17 10/21/17 10/21/17 Range/Units 15:12 16:49 18:25 WBC (5.0-10.0) 10^3/uL RBC (4.6-6.2) 10^6/uL Hgb (14.0-18.0) g/dL Hct (40.0-54.0) % MCV (80-100) fL MCH (27.0-34.0) pg MCHC (33.0-35.0) g/dL Plt Count (150-450) 10^3/uL Neut % (Auto) (42.2-75.2) % Lymph % (Auto) (20.5-50.1) % Lane % (Auto) (2-8) % Eos % (Auto) (1.0-3.0) % Baso % (Auto) (0.0-1.0) % PT (9.0-12.0) SEC INR (0.9-1.2) Sodium (135-145) mmol/L Potassium (3.6-5.0) mmol/L Chloride (101-111) mmol/L Carbon Dioxide (21.0-31.0) mmol/L Anion Gap BUN (7-18) mg/dL Creatinine (0.6-1.3) mg/dL Est Cr Clr Drug Dosing mL/min Estimated GFR (MDRD) Glucose (74-105) mg/dL POC Glucose 180 H (83-110) mg/dl Calcium (8.4-10.2) mg/dl Phosphorus (2.5-4.6) mg/dL Total Bilirubin (0.2-1.0) mg/dL Direct Bilirubin (0.0-0.2) mg/dL Indirect Bilirubin AST (10-42) IU/L ALT (10-60) IU/L Alkaline Phosphatase (42-121) IU/L Total Protein (6.7-8.2) g/dl Albumin (3.2-5.5) g/dl Globulin Albumin/Globulin Ratio Urine Color Dark yellow (YELLOW) Urine Appearance Turbid (CLEAR) Urine pH 5.0 (5.0-9.0) Ur Specific [place] 1.015 (1.005-1.030) Urine Protein 100 H (NEGATIVE) Urine Glucose (UA) Negative (NEGATIVE) Urine Ketones Negative (NEGATIVE) Urine Occult Blood Small H (NEGATIVE) Urine Nitrite Negative (NEGATIVE) Urine Bilirubin Moderate H (NEGATIVE) Urine Urobilinogen 1.0 (0.2-1.0) mg/dL Ur Leukocyte Esterase Small H (NEGATIVE) Urine RBC 0-5 /HPF Urine WBC 10-20 H (0-5/HPF) /HPF Ur Epithelial Cells Few /HPF Urine Bacteria Many H (0-FEW/HPF) /HPF Blood Type B POSITIVE Gel Antibody Screen Negative Crossmatch See Detail 10/21/17 10/22/17 10/22/17 Range/Units 21:13 03:15 07:12 WBC (5.0-10.0) 10^3/uL RBC (4.6-6.2) 10^6/uL Hgb 10.0 L D (14.0-18.0) g/dL Hct (40.0-54.0) % MCV (80-100) fL MCH (27.0-34.0) pg MCHC (33.0-35.0) g/dL Plt Count (150-450) 10^3/uL Neut % (Auto) (42.2-75.2) % Lymph % (Auto) (20.5-50.1) % Lane % (Auto) (2-8) % Eos % (Auto) (1.0-3.0) % Baso % (Auto) (0.0-1.0) % PT (9.0-12.0) SEC INR (0.9-1.2) Sodium (135-145) mmol/L Potassium (3.6-5.0) mmol/L Chloride (101-111) mmol/L Carbon Dioxide (21.0-31.0) mmol/L Anion Gap BUN (7-18) mg/dL Creatinine (0.6-1.3) mg/dL Est Cr Clr Drug Dosing mL/min Estimated GFR (MDRD) Glucose (74-105) mg/dL POC Glucose 241 H 293 H (83-110) mg/dl Calcium (8.4-10.2) mg/dl Phosphorus (2.5-4.6) mg/dL Total Bilirubin (0.2-1.0) mg/dL Direct Bilirubin (0.0-0.2) mg/dL Indirect Bilirubin AST (10-42) IU/L ALT (10-60) IU/L Alkaline Phosphatase (42-121) IU/L Total Protein (6.7-8.2) g/dl Albumin (3.2-5.5) g/dl Globulin Albumin/Globulin Ratio Urine Color (YELLOW) Urine Appearance (CLEAR) Urine pH (5.0-9.0) Ur Specific [place] (1.005-1.030) Urine Protein (NEGATIVE) Urine Glucose (UA) (NEGATIVE) Urine Ketones (NEGATIVE) Urine Occult Blood (NEGATIVE) Urine Nitrite (NEGATIVE) Urine Bilirubin (NEGATIVE) Urine Urobilinogen (0.2-1.0) mg/dL Ur Leukocyte Esterase (NEGATIVE) Urine RBC /HPF Urine WBC (0-5/HPF) /HPF Ur Epithelial Cells /HPF Urine Bacteria (0-FEW/HPF) /HPF Blood Type Gel Antibody Screen Crossmatch 10/22/17 10/22/17 10/22/17 Range/Units 07:18 07:18 10:58 WBC (5.0-10.0) 10^3/uL RBC (4.6-6.2) 10^6/uL Hgb 10.1 L (14.0-18.0) g/dL Hct (40.0-54.0) % MCV (80-100) fL MCH (27.0-34.0) pg MCHC (33.0-35.0) g/dL Plt Count (150-450) 10^3/uL Neut % (Auto) (42.2-75.2) % Lymph % (Auto) (20.5-50.1) % Lane % (Auto) (2-8) % Eos % (Auto) (1.0-3.0) % Baso % (Auto) (0.0-1.0) % PT 70.0 H (9.0-12.0) SEC INR 6.9 H* (0.9-1.2) Sodium (135-145) mmol/L Potassium (3.6-5.0) mmol/L Chloride (101-111) mmol/L Carbon Dioxide (21.0-31.0) mmol/L Anion Gap BUN (7-18) mg/dL Creatinine (0.6-1.3) mg/dL Est Cr Clr Drug Dosing mL/min Estimated GFR (MDRD) Glucose (74-105) mg/dL POC Glucose 345 H (83-110) mg/dl Calcium (8.4-10.2) mg/dl Phosphorus (2.5-4.6) mg/dL Total Bilirubin (0.2-1.0) mg/dL Direct Bilirubin (0.0-0.2) mg/dL Indirect Bilirubin AST (10-42) IU/L ALT (10-60) IU/L Alkaline Phosphatase (42-121) IU/L Total Protein (6.7-8.2) g/dl Albumin (3.2-5.5) g/dl Globulin Albumin/Globulin Ratio Urine Color (YELLOW) Urine Appearance (CLEAR) Urine pH (5.0-9.0) Ur Specific Glen (1.005-1.030) Urine Protein (NEGATIVE) Urine Glucose (UA) (NEGATIVE) Urine Ketones (NEGATIVE) Urine Occult Blood (NEGATIVE) Urine Nitrite (NEGATIVE) Urine Bilirubin (NEGATIVE) Urine Urobilinogen (0.2-1.0) mg/dL Ur Leukocyte Esterase (NEGATIVE) Urine RBC /HPF Urine WBC (0-5/HPF) /HPF Ur Epithelial Cells /HPF Urine Bacteria (0-FEW/HPF) /HPF Blood Type Gel Antibody Screen Crossmatch DANTE Results - Last 24 hrs: Microbiology 10/21/17 18:25 Stool Occult Blood (DANTE) - Final Stool / Feces Med Orders - Current: Current Medications Acetaminophen (Tylenol Extra Strength) 500 mg PO Q6H PRN PRN Reason: Pain Amoxicillin/Clavulanate Potassium (Augmentin 875 Mg/125 Mg) 1 tab PO Q12HR [facility] Stop: 10/27/17 21:01 Last Admin: 10/22/17 09:21 Dose: 1 tab Aspirin (Halfprin) 81 mg PO DAILY [facility] Last Admin: 10/22/17 09:23 Dose: 81 mg Docusate Sodium (Colace) 100 mg PO DAILY PRN PRN Reason: Constipation Furosemide (Lasix) 40 mg IVPUSH ASDIRECTED PRN PRN Reason: fluid overload Last Admin: 10/21/17 22:28 Dose: 40 mg Gemfibrozil (Lopid) 600 mg PO BIDAC [facility] Last Admin: 10/22/17 05:45 Dose: 600 mg Sodium Chloride (Normal Saline) 1,000 mls @ 75 mls/hr IV ASDIRECTED [facility] Last Admin: 10/22/17 10:17 Dose: 75 mls/hr Insulin Aspart (Novolog) 0 unit SUBCUT QIDACANDBED [facility] PRN Reason: Protocol Last Admin: 10/22/17 11:29 Dose: 5 units Lisinopril (Prinivil) 5 mg PO BEDTIME [facility] Last Admin: 10/21/17 20:36 Dose: 5 mg Magnesium Oxide (Magnesium Oxide) 250 mg PO DAILY [facility] Last Admin: 10/22/17 09:22 Dose: 250 mg Metoprolol Succinate (Toprol Xl) 25 mg PO DAILY [facility] Last Admin: 10/22/17 09:23 Dose: 25 mg Pantoprazole Sodium (Protonix Iv) 40 mg IVPUSH BID [facility] Last Admin: 10/22/17 10:22 Dose: 40 mg Mycophenolic Acid 360 Mg- Pt's Own Med 0 each PO BID [facility] Last Admin: 10/22/17 09:20 Dose: 1 each Tacrolimus 1 Mg Pt ('s Own Med) 0 each PO BID [facility] Last Admin: 10/22/17 09:20 Dose: 1 each Risperidone (Risperidal) 2 mg PO BEDTIME [facility] Last Admin: 10/21/17 20:35 Dose: 2 mg Sodium Chloride (Saline Flush) 10 ml FLUSH ASDIRECTED PRN PRN Reason: Keep Vein Open Last Admin: 10/21/17 22:27 Dose: 10 ml Tamsulosin HCl (Flomax) 0.8 mg PO BEDTIME [facility] Last Admin: 10/21/17 20:36 Dose: 0.8 mg Discontinued Medications Acetaminophen (Tylenol) 650 mg PO Q6H PRN PRN Reason: Pain (Mild 1-3)/fever Insulin Human Isoph/Insulin Regular (Novolin 70-30) 12 unit SUBCUT WITHBREAKFAST [facility] Non-Formulary Medication (Insulin Asp Prot/Insulin Asp [Novolog Mix 70-30]) 10 units SQ BEDTIME [facility] Phytonadione (Aquamephyton) 5 mg PO ONETIME ONE Stop: 10/21/17 15:43 Last Admin: 10/21/17 15:57 Dose: 5 mg Phytonadione (Aquamephyton) 5 mg PO ONETIME ONE Stop: 10/22/17 09:05 Last Admin: 10/22/17 09:40 Dose: 5 mg Simethicone (Simethicone) 160 mg PO ONETIME ONE Stop: 10/21/17 21:01 Last Admin: 10/21/17 20:33 Dose: 160 mg Simethicone (Simethicone) 80 mg PO ONETIME ONE Stop: 10/22/17 06:01 Last Admin: 10/22/17 05:44 Dose: 80 mg - Exam General: Reports: Alert, Oriented, Mild Distress HEENT: Reports: Pupils Equal, Pupils Reactive, EOMI, Mucous Membr. Moist/[place] Neck: Reports: Supple Lungs: Reports: Clear to Auscultation, Normal Respiratory Effort Cardiovascular: Reports: Regular Rate, Regular Rhythm GI/Abdominal Exam: Normal Bowel Sounds, Soft, Non-Tender, No Organomegaly, No Distention, No Abnormal Bruit, No Mass, Pelvis Stable, Distended (Male) Exam: No Hernia, Normal Inspection, Normal Prostate, Circumcised Rectal (Males) Exam: Normal Exam, Normal Rectal Tone, Prostate Normal Back Exam: Reports: Normal Inspection, Full Range of Motion Extremities: Normal Inspection, Normal Range of Motion, Non-Tender, No Pedal Edema, Normal Capillary Refill Skin: Reports: Warm, Dry, Intact Wound/Incisions: Reports: Healing Well Neurological: Reports: No New Focal Deficit Psy/Mental Status: Reports: Alert, Normal Affect, Normal Mood EKG INTERPRETATION Rhythm: NSR [place]: Normal P-Wave: Present QRS: Normal ST-T: Normal QT: Normal *Q Meaningful Use (DIS) - VTE *Q VTE Criteria *Q: VTE Mechanical Contraindications *Q: At Risk for Falls - Stroke *Q Stroke Criteria *Q: - AMI *Q AMI Criteria *Q:
[2017-10-22 11:43] VITALS: BP 135/85
== END 2017-10-22 11:55 | DRG 812 ==
LOC: DL.MS 13:18
PROVIDERS: ADMIT Student in an Organized Health Care Education/Training Program; ATTEND Student in an Organized Health Care Education/Training Program
PROC: 30233N1 Transfusion of Nonautologous Red Blood Cells into Peripheral Vein, Percutaneous Approach (ICD-10-PCS; principal; 2017-10-21)
DX: D64.9 Anemia, unspecified (principal); K92.2 Gastrointestinal hemorrhage, unspecified; Z94.0 Kidney transplant status; R53.1 Weakness; Z79.1 Long term (current) use of non-steroidal anti-inflammatories (NSAID); E10.9 Type 1 diabetes mellitus without complications; Z95.2 Presence of prosthetic heart valve; I25.10 Atherosclerotic heart disease of native coronary artery without angina pectoris; I12.9 Hypertensive chronic kidney disease with stage 1 through stage 4 chronic kidney disease, or unspecified chronic kidney disease; N18.9 Chronic kidney disease, unspecified; Z95.5 Presence of coronary angioplasty implant and graft; H91.91 Unspecified hearing loss, right ear; H54.40 Blindness, one eye, unspecified eye; M11.9 Crystal arthropathy, unspecified; F32.9 Major depressive disorder, single episode, unspecified; Z87.891 Personal history of nicotine dependence; Z88.8 Allergy status to other drugs, medicaments and biological substances; Z79.01 Long term (current) use of anticoagulants; Z79.82 Long term (current) use of aspirin; Z79.4 Long term (current) use of insulin; Z79.899 Other long term (current) drug therapy
CPT/HCPCS: 36415; 36430; 76705; 80048; 80076; 81001; 82272; 82607; 82728; 82746; 82962; 83540; 83550; 84100; 85018; 85025; 85610; 86850; 86900; 86901; 86920; 86922; A9270-GY; C9113; J1815-GY; J1940; J7030; J7050; P9016

== ENCOUNTER 2017-10-30 15:23 | Inpatient (IN) | payer MEDICARE, BC ==
--- NOTE | 2017-10-30 14:37 | EDM.PDOC ---
ED HPI GENERAL MEDICAL PROBLEM - General Chief Complaint: Trauma Stated Complaint: SHELIA CODE IN BY AMBULANCE Time Seen by Provider: 10/30/17 14:15 Source of Information: Reports: EMS, Family History Limitations: Reports: Altered Mental Status - History of Present Illness INITIAL COMMENTS - FREE TEXT/NARRATIVE: This 77 yo male patient was brought to the ED by [facility] due to a fall in the bathroom and shortness of breath. EMS reports the patient has been having increased shortness of breath over the past week. The patient arrived on a LSB with no c-collar or head blocks applied. The patient has a laceration above his right eye. The patient's airway was open, spontaneous breathing with no profuse bleeding. The patient responded to verbal stimuli, but speech was not easily understood. The patient was moved from the EMS cot to the ED bed while on the back board. Once on the ED bed, the patient was log rolled (with c-spine precautions) to remove the backboard. The patient has a history of kidney failure (on dialysis), diabetes and a GI bleed. The patient's reports that the patient has been short of breath over the past couple of days with the wheezing starting today. The patient was in the [facility] yesterday to see Dr. Miranda. The patient's reports that the patient was in the hospital in [place] (got out of the hospital last Saturday) due to his blood being too thin (getting vitamin K). The patient's reports that the patient was in the bathroom when he lost his balance and fell. The patient his his right elbow on the counter and right eye on the tub. The reports no loss of consciousness before, during or after the incident. Onset: Today Duration: Constant Location: Reports: Head (right eye laceration), Upper Extremity, Right (skin tear right elbow) Quality: Reports: Other Severity: Moderate Improves with: Reports: None Worsens with: Reports: None Associated Symptoms: Reports: Shortness of Breath (with a wheeze) - Related Data Allergies Allergy/AdvReac Type Severity Reaction Status Date / Time [id number]-Fdf Reductase AdvReac Severe Severe Verified 10/21/17 13:58 Inhibitor muscle aches to all statins. Home Meds: Home Meds Gemfibrozil 600 mg PO BID 09/18/13 [History] Lisinopril 5 mg PO BEDTIME 09/18/13 [History] Mycophenolate [Myfortic] 720 mg PO BID 09/18/13 [History] risperiDONE [RisperiDAL] 2 mg PO BEDTIME 09/18/13 [History] Tacrolimus 1 mg PO BID 10/06/13 [History] Acetaminophen [Tylenol Extra Strength] 500 mg PO Q6H PRN 04/09/14 [History] Aspirin [Ecotrin] 81 mg PO DAILY 04/09/14 [History] Docusate Sodium [Colace] 100 mg PO DAILY PRN 06/04/16 [History] Metoprolol Succinate [Toprol XL] 25 mg PO DAILY 06/04/16 [History] Tamsulosin [Flomax] 0.8 mg PO BEDTIME 06/04/16 [History] Warfarin Sodium [Jantoven] 2 mg PO BEDTIME 06/04/16 [History] Amoxicillin/Potassium Clav [Amox Tr-K Clv 875-125 mg Tab] 1 tab PO Q12H [History] Insulin Asp Prot/Insulin Asp [NovoLOG Mix 70-30] 10 units SQ BEDTIME 10/21/17 [ History] Insulin Asp Prot/Insulin Asp [NovoLOG Mix 70-30] 12 units SQ WITHBREAKFAST 10/21 [History] Magnesium 200 mg PO DAILY 10/21/17 [History] Past Medical History HEENT History: Reports: Impaired Vision Cardiovascular History: Reports: Heart Valve Replacement, High Cholesterol, Hypertension, Stents Respiratory History: Reports: None Gastrointestinal History: Reports: None Genitourinary History: Reports: Other (See Below) Other Genitourinary History: hx kidney transplant Musculoskeletal History: Reports: None Neurological History: Reports: None Psychiatric History: Reports: Depression Endocrine/Metabolic History: Reports: Diabetes, Type I Hematologic History: Reports: Anemia Immunologic History: Reports: None Oncologic (Cancer) History: Reports: Basal Cell Carcinoma, Renal, Other (See Below) Other Oncologic History: renal transplant Dermatologic History: Reports: Other (See Below) Other Dermatologic History: skin cancer left cheek - Infectious Disease History Infectious Disease History: Reports: None - Past Surgical History Male Surgical History: Reports: Nephrectomy Social & Family History - Family History Family Medical History: Noncontributory - Tobacco Use Smoking Status *Q: Never Smoker Years of Tobacco use: 15 Used Tobacco, but Quit: Yes Month Tobacco Last Used: [employer] Second Hand Smoke Exposure: No - Caffeine Use Caffeine Use: Reports: Coffee - Alcohol Use Days Per Week of Alcohol Use: 0 - Recreational Drug Use Recreational Drug Use: No - Living Situation & Occupation Living situation: Reports: , with Family Occupation: Disabled Review of Systems - Review of Systems Review Of Systems: ROS reveals no pertinent complaints other than HPI. ED EXAM, GENERAL - Physical Exam Exam: See Below Exam Limited By: Altered Mental Status ( reports the mentation is normal for the patient) General Appearance: Alert, WD/WN, Moderate Distress Eye Exam: Bilateral Eye: EOMI, PERRL Ears: Normal Canal, Hearing Grossly Normal, Normal TMs, Other (Moh's surgery right ear (CA) normal stages of healing) Nose: Normal Inspection, Normal Mucosa, No Blood Throat/Mouth: Normal Inspection, Normal Lips, Normal Teeth, Normal Gums, Normal Oropharynx, Normal Voice, No Airway Compromise Head: Other (laceration to right eyebrow) Neck: Normal Inspection, Supple, Non-Tender, Full Range of Motion Respiratory/Chest: Decreased Breath Sounds, Rhonchi (diffuse), Wheezing (diffuse ) Cardiovascular: Normal Peripheral Pulses, Regular Rate, Rhythm, No Edema, No Gallop, No JVD, No Murmur, No Rub GI/Abdominal: Normal Bowel Sounds, Soft, Non-Tender, No Organomegaly, No Distention, No Abnormal Bruit, No Mass (Male) Exam: Deferred Rectal (Males) Exam: Deferred Back Exam: Normal Inspection, Full Range of Motion, NT Extremities: Normal Inspection, Normal Range of Motion, Non-Tender, Normal Capillary Refill, No Pedal Edema Neurological: Alert, Oriented, CN II-XII Intact, Normal Cognition, Normal Gait, Normal Reflexes, No Motor/Sensory Deficits Psychiatric: Normal Affect, Normal Mood Skin Exam: Warm, Dry, Intact, Normal Color, No Rash Lymphatic: No Adenopathy Course - Orders/Labs/Meds Orders: Active Orders 24 hr Category Date Time Status EKG Documentation Completion [RC] URGENT Care 10/30/17 14:23 Active Cervical Spine wo Cont [CT] Urgent Exams 10/30/17 14:23 Taken Head wo Cont [CT] Urgent Exams 10/30/17 14:23 Taken CULTURE BLOOD [BC] Stat Lab 10/30/17 14:25 Ordered CULTURE BLOOD [BC] Stat Lab 10/30/17 14:25 Received UA W/MICROSCOPIC [URIN] Stat Lab 10/30/17 14:23 Ordered Levofloxacin/Dextrose 5%-Water [Levaquin in D5W 750 MG/ Med 10/30/17 15:16 Ordered 150 ML] 750 mg Premix Bag 1 bag IV ONETIME Blood Culture x2 Reflex Set [OM.PC] Stat Oth 10/30/17 14:23 Ordered Medication Orders Levofloxacin/Dextrose 750 mg/ (Premix) 150 mls @ 100 mls/hr IV ONETIME ONE Stop: 10/30/17 16:45 Labs: Laboratory Tests 10/30/17 10/30/17 10/30/17 Range/Units 14:25 14:25 14:25 WBC 18.5 H (5.0-10.0) 10^3/uL RBC 4.10 L (4.6-6.2) 10^6/uL Hgb 11.8 L D (14.0-18.0) g/dL Hct 35.8 L (40.0-54.0) % MCV 87.3 (80-100) fL MCH 28.8 (27.0-34.0) pg MCHC 33.0 (33.0-35.0) g/dL Plt Count 206 (150-450) 10^3/uL Neut % (Auto) 85.6 H (42.2-75.2) % Lymph % (Auto) 2.3 L (20.5-50.1) % Wise % (Auto) 11.7 H (2-8) % Eos % (Auto) 0.0 L (1.0-3.0) % Baso % (Auto) 0.4 (0.0-1.0) % PT 11.1 D (9.0-12.0) SEC INR 1.1 (0.9-1.2) Sodium (135-145) mmol/L Potassium (3.6-5.0) mmol/L Chloride (101-111) mmol/L Carbon Dioxide (21.0-31.0) mmol/L Anion Gap BUN (7-18) mg/dL Creatinine (0.6-1.3) mg/dL Est Cr Clr Drug Dosing Estimated GFR (MDRD) BUN/Creatinine Ratio Glucose (74-105) mg/dL Lactic Acid 3.4 H (0.5-2.2) mmol/L Calcium (8.4-10.2) mg/dl Total Bilirubin (0.2-1.0) mg/dL AST (10-42) IU/L ALT (10-60) IU/L Alkaline Phosphatase (42-121) IU/L Troponin I (0.00-0.02) ng/ml Total Protein (6.7-8.2) g/dl Albumin (3.2-5.5) g/dl Globulin Albumin/Globulin Ratio 10/30/17 Range/Units 14:25 WBC (5.0-10.0) 10^3/uL RBC (4.6-6.2) 10^6/uL Hgb (14.0-18.0) g/dL Hct (40.0-54.0) % MCV (80-100) fL MCH (27.0-34.0) pg MCHC (33.0-35.0) g/dL Plt Count (150-450) 10^3/uL Neut % (Auto) (42.2-75.2) % Lymph % (Auto) (20.5-50.1) % Wise % (Auto) (2-8) % Eos % (Auto) (1.0-3.0) % Baso % (Auto) (0.0-1.0) % PT (9.0-12.0) SEC INR (0.9-1.2) Sodium 136 (135-145) mmol/L Potassium 4.7 (3.6-5.0) mmol/L Chloride 100 L (101-111) mmol/L Carbon Dioxide 23.0 (21.0-31.0) mmol/L Anion Gap 17.7 BUN 57 H D (7-18) mg/dL Creatinine 1.9 H (0.6-1.3) mg/dL Est Cr Clr Drug Dosing TNP Estimated GFR (MDRD) 35 BUN/Creatinine Ratio 30.00 Glucose 128 H (74-105) mg/dL Lactic Acid (0.5-2.2) mmol/L Calcium 9.5 (8.4-10.2) mg/dl Total Bilirubin 10.9 H (0.2-1.0) mg/dL AST 63 H (10-42) IU/L ALT 49 (10-60) IU/L Alkaline Phosphatase 683 H (42-121) IU/L Troponin I 0.08 H* (0.00-0.02) ng/ml Total Protein 6.5 L (6.7-8.2) g/dl Albumin 3.0 L (3.2-5.5) g/dl Globulin 3.5 Albumin/Globulin Ratio 0.86 Meds: Medications Generic Name Dose Route Start Last Admin Trade Name Freq PRN Reason Stop Dose Admin Levofloxacin/Dextrose 750 mg/ 150 mls @ 100 mls/hr 10/30/17 15:16 Premix IV 10/30/17 16:45 ONETIME ONE Departure - Departure Time of Disposition: 15:18 Disposition: Admitted As Inpatient 67 Condition: Serious Clinical Impression: Bronchitis Leukocytosis Qualifiers: Leukocytosis type: bandemia Qualified Code(s): D72.825 - Bandemia - Discharge Information Care Plan Goals: Discussed the examination, lab, CT and x-ray results with Dr. Castañeda. Dr. Castañeda accepted the patient for continued evaluation and further management as an inpatient at [facility]. The patient was started on Levaquin while in the ED. - My Orders Last 24 Hours: My Active Orders 10/30/17 14:23 EKG Documentation Completion [RC] URGENT Cervical Spine wo Cont [CT] Urgent Head wo Cont [CT] Urgent UA W/MICROSCOPIC [URIN] Stat Blood Culture x2 Reflex Set [OM.PC] Stat 10/30/17 14:25 CULTURE BLOOD [BC] Stat CULTURE BLOOD [BC] Stat 10/30/17 15:16 Levofloxacin/Dextrose 5%-Water [Levaquin in D5W 750 MG/150 ML] 750 mg Premix Bag 1 bag IV ONETIME - Assessment/Plan Last 24 Hours: My Active Orders 10/30/17 14:23 EKG Documentation Completion [RC] URGENT Cervical Spine wo Cont [CT] Urgent Head wo Cont [CT] Urgent UA W/MICROSCOPIC [URIN] Stat Blood Culture x2 Reflex Set [OM.PC] Stat 10/30/17 14:25 CULTURE BLOOD [BC] Stat CULTURE BLOOD [BC] Stat 10/30/17 15:16 Levofloxacin/Dextrose 5%-Water [Levaquin in D5W 750 MG/150 ML] 750 mg Premix Bag 1 bag IV ONETIME
[2017-10-30 14:55] LABS: CHLORIDE,CL 100 mmol/L (101-111); SODIUM,NA 136 mmol/L (135-145)
[~2017-10-30 15:23] MED LIST: Levofloxacin/Dextrose 5%-Water 750 MG in Premix Bag 1 BAG IV ONE
[2017-10-30] MEDS ORDERED: Sodium Chloride 0.9% 10 ML Syringe FLUSH PRN (16:33)
[2017-10-30] MEDS ORDERED: Zolpidem 5 MG Tab PO PRN (16:33)
--- NOTE | 2017-10-30 16:42 | PCM.HP ---
H&P History of Present Illness - General Date of Service: 10/30/17 Admit Problem/Dx: Admission Diagnosis/Problem Admission Diagnosis/Problem Palliative care Source of Information: Family (), Provider (er), Other (Critical access hospital records) - History of Present Illness Initial Comments - Free Text/Narative: The patient is a 77-year-old gentleman with complicated medical history including liver transplant, diabetes, valve replacement on chronic anticoagulation. The patient was recently admitted to [facility] and noted to have elevated INR, low hemoglobin. There was occult positive stool but no evidence of ongoing GI bleed noted. The anemia was also evaluated by hematology for possible hemolysis but this was not confirmed by lab testing. He was noted to have elevated bilirubin and alkaline phosphatase. The patient was seen by GI specialist who recommended outpatient workup. The patient was discharged on 25 October. And it seemed it for a day or 2 he was doing good but then started to complain of increased shortness of breath. On 30 October patient fell in the bathroom, injured the elbow and the right side of the face. There was no apparent loss of consciousness. There was no wheezing noted. The patient was brought into the emergency room. The patient is lethargic and difficult to understand his speech. He was noted to have a deep icterus. Noted to have leukocytosis. - Related Data Allergies/Adverse Reactions: Allergies Allergy/AdvReac Type Severity Reaction Status Date / Time Haodhru-Fyf-Jcj Reductase AdvReac Severe Severe Verified 10/30/17 16:35 Inhibitor muscle aches to all statins. Home Medications: Home Meds Gemfibrozil 600 mg PO BID 09/18/13 [History] Lisinopril 5 mg PO BEDTIME 09/18/13 [History] Mycophenolate [Myfortic] 720 mg PO BID 09/18/13 [History] risperiDONE [RisperiDAL] 2 mg PO BEDTIME 09/18/13 [History] Tacrolimus 1 mg PO BID 10/06/13 [History] Acetaminophen [Tylenol Extra Strength] 500 mg PO Q6H PRN 04/09/14 [History] Aspirin [Ecotrin] 81 mg PO DAILY 04/09/14 [History] Docusate Sodium [Colace] 100 mg PO DAILY PRN 06/04/16 [History] Metoprolol Succinate [Toprol XL] 25 mg PO DAILY 06/04/16 [History] Tamsulosin [Flomax] 0.8 mg PO BEDTIME 06/04/16 [History] Warfarin Sodium [Jantoven] 2 mg PO BEDTIME 06/04/16 [History] Amoxicillin/Potassium Clav [Amox Tr-K Clv 875-125 mg Tab] 1 tab PO Q12H [History] Insulin Asp Prot/Insulin Asp [NovoLOG Mix 70-30] 10 units SQ BEDTIME 10/21/17 [ History] Insulin Asp Prot/Insulin Asp [NovoLOG Mix 70-30] 12 units SQ WITHBREAKFAST 10/21 [History] Magnesium 200 mg PO DAILY 10/21/17 [History] Past Medical History HEENT History: Reports: Impaired Vision Cardiovascular History: Reports: Heart Valve Replacement, High Cholesterol, Hypertension, Stents Respiratory History: Reports: None Gastrointestinal History: Reports: None Genitourinary History: Reports: Other (See Below) Other Genitourinary History: hx kidney transplant Musculoskeletal History: Reports: None Neurological History: Reports: None Psychiatric History: Reports: Depression Endocrine/Metabolic History: Reports: Diabetes, Type I Hematologic History: Reports: Anemia Immunologic History: Reports: None Oncologic (Cancer) History: Reports: Basal Cell Carcinoma, Renal, Other (See Below) Other Oncologic History: renal transplant Dermatologic History: Reports: Other (See Below) Other Dermatologic History: skin cancer left cheek - Infectious Disease History Infectious Disease History: Reports: None - Past Surgical History Male Surgical History: Reports: Nephrectomy Social & Family History - Family History Family Medical History: Noncontributory - Tobacco Use Smoking Status *Q: Never Smoker Years of Tobacco use: 15 Used Tobacco, but Quit: Yes Month Tobacco Last Used: August Second Hand Smoke Exposure: No - Caffeine Use Caffeine Use: Reports: Coffee - Alcohol Use Days Per Week of Alcohol Use: 0 - Recreational Drug Use Recreational Drug Use: No - Living Situation & Occupation Living situation: Reports: , with Family Occupation: Disabled H&P Review of Systems - Review of Systems: Review Of Systems: See Below General: Reports: Weakness, Fatigue. Denies: Fever Pulmonary: Reports: Shortness of Breath, Wheezing Cardiovascular: Denies: Chest Pain, Edema Gastrointestinal: Reports: Distension. Denies: Abdominal Pain Skin: Reports: Jaundice Psychiatric: Reports: Other (Lethargy) Neurological: Reports: Other (Has dysarthria but moving extremities and following commands) Exam - Exam Exam: See Below - Exam Quality Assessment: Supplemental Oxygen General: Alert, Other (Difficult to communicate due to dysarthria). No: Oriented HEENT: Scleral Icterus Lungs: Decreased Breath Sounds (Has very little air movement). No: Wheezing Cardiovascular: Regular Rate, Regular Rhythm GI/Abdominal Exam: Distended, Other (I believe the patient has tense ascites). No: Tender Extremities: No: Pedal Edema Skin: Warm, Ecchymosis, Other (Small laceration right side of the head and elbow , deep icterus) Neuro Extensive - Mental Status: Other (Dysarthria, lethargic) - Patient Data Result Diagrams: 10/30/17 14:25 10/30/17 14:25 *Q Meaningful Use (ADM) - VTE *Q VTE Criteria *Q: - Stroke *Q Stroke Criteria *Q: - AMI *Q AMI Criteria *Q: - Problem List (1) KANDICE (acute kidney injury) SNOMED Code(s): 59026703 ICD Code: N17.9 - ACUTE KIDNEY FAILURE, UNSPECIFIED Status: Acute Current Visit: Yes (2) Hyperbilirubinemia SNOMED Code(s): 75075413 ICD Code: E80.6 - OTHER DISORDERS OF BILIRUBIN METABOLISM Status: Acute Current Visit: Yes (3) Diabetes mellitus type 2 SNOMED Code(s): 75534765 ICD Code: E11.9 - TYPE 2 DIABETES MELLITUS WITHOUT COMPLICATIONS Status: Chronic Current Visit: No (4) Transplant of kidney SNOMED Code(s): 216040255 ICD Code: Z94.0 - KIDNEY TRANSPLANT STATUS Status: Chronic Current Visit : No Problem List Initiated/Reviewed/Updated: Yes Orders Last 24hrs: Active Orders 24 hr Category Date Time Status Patient Status [ADT] Routine ADT 10/30/17 16:33 Ordered Antiembolic Devices [RC] PER UNIT ROUTINE Care 10/30/17 16:35 Ordered Oxygen Therapy [RC] PRN Care 10/30/17 16:33 Ordered Peripheral IV Care [RC] . DIRECTED Care 10/30/17 16:35 Ordered RT Aerosol Therapy [RC] ASDIRECTED Care 10/30/17 16:26 Ordered Up With Assistance [RC] ASDIRECTED Care 10/30/17 16:33 Ordered VTE/DVT Education [RC] PER UNIT ROUTINE Care 10/30/17 16:33 Ordered Vital Signs [RC] Q4H Care 10/30/17 16:33 Ordered Regular Diet [DIET] Diet 10/30/17 Dinner Ordered BASIC METABOLIC PANEL,BMP [CHEM] AM Lab 10/31/17 05:15 Ordered CBC WITH AUTO DIFF [HEME] AM Lab 10/31/17 05:15 Ordered LACTIC ACID [CHEM] AM Lab 10/31/17 05:11 Ordered Albuterol/Ipratropium [DuoNeb 3.0-0.5 MG/3 ML] Med 10/30/17 18:00 Ordered 3 ml NEB Q6HRRT Aspirin [Halfprin] Med 10/31/17 09:00 Ordered 81 mg PO DAILY Levofloxacin/Dextrose 5%-Water [Levaquin in D5W 500 MG/ Med 11/01/17 16:30 Ordered 100 ML] 500 mg Premix Bag 1 bag IV .Q48H Mycophenolate [Myfortic] Med 10/30/17 21:00 Ordered 720 mg PO BID Sodium Chloride 0.9% @ 75 MLS/HR(1000ml) Med 10/30/17 16:45 Ordered Sodium Chloride 0.9% [Normal Saline] 1,000 ml IV ASDIRECTED Sodium Chloride 0.9% [Saline Flush] Med 10/30/17 16:33 Ordered 10 ml FLUSH ASDIRECTED PRN Tacrolimus Med 10/30/17 21:00 Ordered 1 mg PO BID Tamsulosin [Flomax] Med 10/30/17 21:00 Ordered 0.8 mg PO BEDTIME Warfarin Pharmacy to Dose [Pharmacy to Dose - Warfarin] Med 10/30/17 16:45 Ordered 1 dose .XX ASDIRECTED Zolpidem [Ambien] Med 10/30/17 16:33 Ordered 5 mg PO BEDTIME PRN Antiembolic Hose [OM.PC] Per Unit Routine Oth 10/30/17 16:34 Ordered Peripheral IV Insertion Adult [OM.PC] Routine Oth 10/30/17 16:33 Ordered Resuscitation Status Routine Resus Stat 10/30/17 16:33 Ordered Medication Orders Albuterol/Ipratropium (Duoneb 3.0-0.5 Mg/3 Ml) 3 ml NEB Q6HRRT CHARLES Aspirin (Halfprin) 81 mg PO DAILY CHARLES Levofloxacin/Dextrose 750 mg/ (Premix) 150 mls @ 100 mls/hr IV ONETIME ONE Stop: 10/30/17 16:45 Last Admin: 10/30/17 15:34 Dose: 100 mls/hr Levofloxacin/Dextrose 500 mg/ (Premix) 100 mls @ 100 mls/hr IV .Q48H CHARLES Sodium Chloride (Normal Saline) 1,000 mls @ 75 mls/hr IV ASDIRECTED CHARLES Non-Formulary Medication (Mycophenolate [Myfortic]) 720 mg PO BID CHARLES Non-Formulary Medication (Tacrolimus) 1 mg PO BID CHARLES Sodium Chloride (Saline Flush) 10 ml FLUSH ASDIRECTED PRN PRN Reason: Keep Vein Open Tamsulosin HCl (Flomax) 0.8 mg PO BEDTIME CHARLES Warfarin Sodium (Pharmacy To Dose - Warfarin) 1 dose .XX ASDIRECTED CHARLES Zolpidem Tartrate (Ambien) 5 mg PO BEDTIME PRN PRN Reason: Sleep Assessment/Plan Comment:: The patient is a 77-year-old gentleman with a history of diabetes, aortic valve replacement, renal transplant, coronary artery disease. The patient presented with lethargic, falling, acute respiratory failure, deep icterus. Noted to have elevated lactic acid possible sepsis, likely ascites, elevated bilirubin. It is unclear if it is due to hepatitic parenchyma disease, and hemolytic or biliary duct occlusion and disease. I think the patient is critically ill. He has acute liver failure, acute renal failure, lactic acidosis and possible sepsis. Significant ascites. Acute hypoxemic respiratory failure likely in part due to due to ascites, possible COPD less likely due to CHF. Discussed with the patient's of treatment options. If the goal is to treat the patient I do not think that our Hospital is equipped to do so. Further evaluation by specialist is needed. Currently I cannot even get a right upper quadrant Ultrasound in our setting. We also discussed if that goal of care is comfort care we are very well equipped to do that here. I do think that we don't aggressive care the patient' s life expectancy is few days only. After discussion with the and other family members the felt that they would like to pursue comfort care only and stay at our hospital. I will give the patient gentle IV hydration, start an antibiotic for a possible bronchitis, peritonitis. We'll use pain medications and comfort care treatment as needed. Continue antirejection medications for the history of renal transplant Continue anticoagulation for aortic wall replacement but watch out for GI bleed symptoms. If the patient's condition is not improving in 24-48 hrs. we'll de-escalate these therapeutic measures.
[2017-10-30] MEDS ORDERED: Warfarin 5 MG Tab PO ONE (17:30)
[2017-10-30] MEDS: Albuterol/Ipratropium 3.0-0.5 MG/3 ML Neb Soln NEB SCH (17:37)
[2017-10-30] MEDS: Sodium Chloride 0.9% 1,000 ML IV SCH (17:54)
[2017-10-30] MEDS ORDERED: Hydrocortisone/Neomycin/Polymyxin B Otic Susp 10 ML Bottle EARRT SCH (21:00)
[2017-10-30] MEDS: Tamsulosin 0.4 MG Cap.ER PO SCH (21:14)
[2017-10-30] MEDS: POLYMYXIN B EARRT SCH (21:21)
[2017-10-30] MEDS: HYDROCORTISONE EARRT SCH (21:21)
[2017-10-30] MEDS: NEOMYCIN EARRT SCH (21:21)
[2017-10-30] MEDS: risperiDONE 1 MG Tab PO SCH (22:23)
[2017-10-31] MEDS: Albuterol/Ipratropium 3.0-0.5 MG/3 ML Neb Soln NEB SCH ×4 (00:58→17:44)
[2017-10-31] MEDS: Sodium Chloride 0.9% 1,000 ML IV SCH (07:40)
[2017-10-31] MEDS ORDERED: Aspirin 81 MG Tab.EC PO SCH (09:00)
[2017-10-31] MEDS: Insulin Aspart 100 Units/ML 3 ML Pen SUBCUT SCH ×2 (10:17→14:14)
[2017-10-31] MEDS: HYDROCORTISONE EARRT SCH ×2 (10:17→14:15)
[2017-10-31] MEDS: NEOMYCIN EARRT SCH ×2 (10:17→14:15)
[2017-10-31] MEDS: POLYMYXIN B EARRT SCH ×2 (10:17→14:15)
[2017-10-31] MEDS: Acetaminophen 325 MG Tab PO PRN (10:51)
[2017-10-31] MEDS ORDERED: Warfarin 2.5 MG Tab PO ONE (14:00)
--- NOTE | 2017-10-31 15:29 | PCM.PN ---
- General Info Date of Service: 10/31/17 Admission Dx/Problem (Free Text): Admission Diagnosis/Problem Admission Diagnosis/Problem Palliative care Subjective Update: Patient seen and examined by me. Lying in bed, mostly comfortable. Complains of mild pain in left chest at site of previous rib injury. No shortness of breath. Having regular bowel movements. Functional Status: Reports: Pain Controlled - Review of Systems General: Reports: No Symptoms HEENT: Reports: No Symptoms Pulmonary: Reports: No Symptoms Cardiovascular: Reports: No Symptoms Gastrointestinal: Reports: No Symptoms Genitourinary: Reports: No Symptoms Musculoskeletal: Reports: Other (rib pain) - Patient Data Vitals - Most Recent: Last Vital Signs Temp 37.1 C 10/31/17 08:00 Pulse 87 10/31/17 08:00 Resp 20 10/31/17 08:00 BP 116/76 10/31/17 08:00 Pulse Ox 98 10/31/17 08:00 Weight - Most Recent: 63.1 kg I&O - Last 24 Hours: Intake & Output 10/31/17 10/31/17 10/31/17 06:59 14:59 22:59 Intake Total 250 804 Balance 250 804 Lab Results Last 24 Hours: Laboratory Results - last 24 hr 10/30/17 10/30/17 10/31/17 Range/Units 17:24 21:08 06:20 WBC (5.0-10.0) 10^3/uL RBC (4.6-6.2) 10^6/uL Hgb (14.0-18.0) g/dL Hct (40.0-54.0) % MCV (80-100) fL MCH (27.0-34.0) pg MCHC (33.0-35.0) g/dL Plt Count (150-450) 10^3/uL Neut % (Auto) (42.2-75.2) % Lymph % (Auto) (20.5-50.1) % [place] % (Auto) (2-8) % Eos % (Auto) (1.0-3.0) % Baso % (Auto) (0.0-1.0) % Sodium (135-145) mmol/L Potassium (3.6-5.0) mmol/L Chloride (101-111) mmol/L Carbon Dioxide (21.0-31.0) mmol/L Anion Gap BUN (7-18) mg/dL Creatinine (0.6-1.3) mg/dL Est Cr Clr Drug Dosing mL/min Estimated GFR (MDRD) Glucose (74-105) mg/dL POC Glucose 110 270 H (83-110) mg/dl Lactic Acid 1.5 (0.5-2.2) mmol/L Calcium (8.4-10.2) mg/dl 10/31/17 10/31/17 10/31/17 Range/Units 06:20 06:20 07:54 WBC 18.0 H (5.0-10.0) 10^3/uL RBC 3.29 L (4.6-6.2) 10^6/uL Hgb 9.4 L D (14.0-18.0) g/dL Hct 28.3 L (40.0-54.0) % MCV 86.0 (80-100) fL MCH 28.6 (27.0-34.0) pg MCHC 33.2 (33.0-35.0) g/dL Plt Count 184 (150-450) 10^3/uL Neut % (Auto) 85.7 H (42.2-75.2) % Lymph % (Auto) 2.0 L (20.5-50.1) % [place] % (Auto) 11.9 H (2-8) % Eos % (Auto) 0.0 L (1.0-3.0) % Baso % (Auto) 0.4 (0.0-1.0) % Sodium 134 L (135-145) mmol/L Potassium 4.7 (3.6-5.0) mmol/L Chloride 101 (101-111) mmol/L Carbon Dioxide 24.0 (21.0-31.0) mmol/L Anion Gap 13.7 BUN 57 H (7-18) mg/dL Creatinine 2.0 H (0.6-1.3) mg/dL Est Cr Clr Drug Dosing 25.29 mL/min Estimated GFR (MDRD) 33 Glucose 295 H (74-105) mg/dL POC Glucose 351 H (83-110) mg/dl Lactic Acid (0.5-2.2) mmol/L Calcium 8.7 (8.4-10.2) mg/dl 10/31/17 Range/Units 11:56 WBC (5.0-10.0) 10^3/uL RBC (4.6-6.2) 10^6/uL Hgb (14.0-18.0) g/dL Hct (40.0-54.0) % MCV (80-100) fL MCH (27.0-34.0) pg MCHC (33.0-35.0) g/dL Plt Count (150-450) 10^3/uL Neut % (Auto) (42.2-75.2) % Lymph % (Auto) (20.5-50.1) % [place] % (Auto) (2-8) % Eos % (Auto) (1.0-3.0) % Baso % (Auto) (0.0-1.0) % Sodium (135-145) mmol/L Potassium (3.6-5.0) mmol/L Chloride (101-111) mmol/L Carbon Dioxide (21.0-31.0) mmol/L Anion Gap BUN (7-18) mg/dL Creatinine (0.6-1.3) mg/dL Est Cr Clr Drug Dosing mL/min Estimated GFR (MDRD) Glucose (74-105) mg/dL POC Glucose 335 H (83-110) mg/dl Lactic Acid (0.5-2.2) mmol/L Calcium (8.4-10.2) mg/dl Med Orders - Current: Current Medications Acetaminophen (Tylenol) 650 mg PO Q6H PRN PRN Reason: Pain (mild 1-3) Last Admin: 10/31/17 10:51 Dose: 650 mg Albuterol/Ipratropium (Duoneb 3.0-0.5 Mg/3 Ml) 3 ml NEB Q6HRRT [facility] Last Admin: 10/31/17 14:14 Dose: 3 ml Risperidone (Risperidal) 1 mg PO BEDTIME [facility] Last Admin: 10/30/17 22:23 Dose: 1 mg Tamsulosin HCl (Flomax) 0.8 mg PO BEDTIME [facility] Last Admin: 10/30/17 21:14 Dose: 0.8 mg Zolpidem Tartrate (Ambien) 5 mg PO BEDTIME PRN PRN Reason: Sleep Discontinued Medications Aspirin (Halfprin) 81 mg PO DAILY [facility] Last Admin: 10/31/17 10:18 Dose: 81 mg Levofloxacin/Dextrose 750 mg/ (Premix) 150 mls @ 100 mls/hr IV ONETIME ONE Stop: 10/30/17 16:45 Last Infusion: 10/30/17 17:35 Dose: Infused Levofloxacin/Dextrose 500 mg/ (Premix) 100 mls @ 100 mls/hr IV Q48H [facility] Sodium Chloride (Normal Saline) 1,000 mls @ 75 mls/hr IV ASDIRECTED [facility] Last Infusion: 10/31/17 14:22 Dose: 75 mls/hr Insulin Aspart (Novolog) 0 unit SUBCUT TIDMEALS [facility] PRN Reason: Protocol Last Admin: 10/31/17 14:14 Dose: 8 units Neomycin/Polymyxin/Hydrocortisone (Cortisporin Otic Susp) 0 ml EARRT QID [facility] Last Admin: 10/31/17 14:15 Dose: 1 drop (Mycophenolate [ Myfortic] 360 Mg) Patients Own Med 0 mg PO BID [facility] Last Admin: 10/31/17 10:18 Dose: 720 mg (Tacrolimus 1 Mg) (Patients Own Med) 1 mg PO BID [facility] Last Admin: 10/31/17 10:19 Dose: 1 mg Sodium Chloride (Saline Flush) 10 ml FLUSH ASDIRECTED PRN PRN Reason: Keep Vein Open Last Admin: 10/30/17 17:56 Dose: 10 ml Warfarin Sodium (Pharmacy To Dose - Warfarin) 1 dose .XX ASDIRECTED [facility] Warfarin Sodium (Coumadin) 5 mg PO ONETIME ONE Stop: 10/30/17 17:31 Last Admin: 10/30/17 17:53 Dose: 5 mg Warfarin Sodium (Coumadin) 2.5 mg PO ONETIME ONE Stop: 10/31/17 14:01 Last Admin: 10/31/17 14:14 Dose: 2.5 mg - Exam General: Alert, Oriented HEENT: Pupils Equal, Pupils Reactive, EOMI, Mucous Membr. Moist/[place] Neck: Supple Lungs: Clear to Auscultation Cardiovascular: Regular Rate, Regular Rhythm GI/Abdominal Exam: Normal Bowel Sounds, Non-Tender - Problem List Review Problem List Initiated/Reviewed/Updated: Yes - My Orders Last 24 Hours: My Active Orders 10/31/17 10:30 Acetaminophen [Tylenol] 650 mg PO Q6H PRN - Plan Plan:: The patient is a 77-year-old gentleman with a history of diabetes, aortic valve replacement, renal transplant, coronary artery disease. The patient presented with lethargic, falling, acute respiratory failure, deep icterus. Noted to have elevated lactic acid possible sepsis, likely ascites, elevated bilirubin. I think the patient is critically ill. He has acute liver failure, acute renal failure, lactic acidosis and possible sepsis. Significant ascites. Acute hypoxemic respiratory failure likely in part due to due to ascites, possible COPD less likely due to CHF. Discussed with the patient and the patient's of treatment options. They have chosen to adopt comfort care measures. Will descalate medical management, stop IV fluids, stop kidney rejection medications, stop lab draw and blood glucose checks. Focus on comfort, pain management, bowel regimen, comfortable breathing and antidepressants if necessary. Patient's expresses that she cannot take care of the patient at home. Will start to explore placement options with inpatient placement/hospice.
[2017-10-31] MEDS: Tamsulosin 0.4 MG Cap.ER PO SCH (22:38)
[2017-10-31] MEDS: MYCOPHENOLATE 360 MG PO SCH (22:39)
[2017-10-31] MEDS: TACROLIMUS 1 MG PO SCH (22:40)
[2017-10-31] MEDS: risperiDONE 1 MG Tab PO SCH (22:41)
[2017-11-01] MEDS: Albuterol/Ipratropium 3.0-0.5 MG/3 ML Neb Soln NEB SCH ×4 (01:17→17:37)
[2017-11-01] MEDS: Insulin Aspart 100 Units/ML 3 ML Pen SUBCUT SCH ×3 (09:12→17:25)
[2017-11-01] MEDS: TACROLIMUS 1 MG PO SCH ×2 (09:13→21:53)
[2017-11-01] MEDS: MYCOPHENOLATE 360 MG PO SCH ×2 (09:14→21:53)
--- NOTE | 2017-11-01 09:38 | PCM.PN ---
- General Info Date of Service: 11/01/17 Admission Dx/Problem (Free Text): Admission Diagnosis/Problem Admission Diagnosis/Problem Palliative care Subjective Update: Patient seen and examined by me. Lying in bed, mostly comfortable. Complains of mild pain in left chest at site of previous rib injury. No shortness of breath. and Son (Antonio) at bedside - Review of Systems General: Reports: No Symptoms HEENT: Reports: No Symptoms Pulmonary: Reports: No Symptoms Cardiovascular: Reports: No Symptoms Gastrointestinal: Reports: No Symptoms Genitourinary: Reports: No Symptoms Musculoskeletal: Reports: Other (left rib pain) - Patient Data Vitals - Most Recent: Last Vital Signs Temp 37.4 C 11/01/17 04:00 Pulse 88 11/01/17 07:09 Resp 18 11/01/17 01:20 BP 158/89 H 11/01/17 01:20 Pulse Ox 95 11/01/17 05:36 Weight - Most Recent: 63.1 kg I&O - Last 24 Hours: Intake & Output 10/31/17 11/01/17 11/01/17 22:59 06:59 14:59 Intake Total 200 Balance 200 Lab Results Last 24 Hours: Laboratory Results - last 24 hr 10/31/17 10/31/17 10/31/17 Range/Units 11:56 17:06 20:49 POC Glucose 335 H 220 H 197 H (83-110) mg/dl 11/01/17 Range/Units 07:40 POC Glucose 352 H (83-110) mg/dl Med Orders - Current: Current Medications Acetaminophen (Tylenol) 650 mg PO Q6H PRN PRN Reason: Pain (mild 1-3) Last Admin: 10/31/17 10:51 Dose: 650 mg Albuterol/Ipratropium (Duoneb 3.0-0.5 Mg/3 Ml) 3 ml NEB Q6HRRT [facility] Last Admin: 11/01/17 07:09 Dose: 3 ml Hydromorphone HCl (Dilaudid) 0.5 mg IVPUSH Q2H PRN PRN Reason: Pain Insulin Aspart (Novolog) 0 unit SUBCUT TIDMEALS [facility] PRN Reason: Protocol Last Admin: 11/01/17 09:12 Dose: 10 units Ptom*Tacrolimus 1 (Mg Cap) 0 each PO BID [facility] Last Admin: 11/01/17 09:13 Dose: 1 each Ptom Mycophenolate [address] Tab 0 each PO BID [facility] Last Admin: 11/01/17 09:14 Dose: 1 each Risperidone (Risperidal) 1 mg PO BEDTIME [facility] Last Admin: 10/31/17 22:41 Dose: 1 mg Tamsulosin HCl (Flomax) 0.8 mg PO BEDTIME [facility] Last Admin: 10/31/17 22:38 Dose: 0.8 mg Zolpidem Tartrate (Ambien) 5 mg PO BEDTIME PRN PRN Reason: Sleep Discontinued Medications Aspirin (Halfprin) 81 mg PO DAILY [facility] Last Admin: 10/31/17 10:18 Dose: 81 mg Levofloxacin/Dextrose 750 mg/ (Premix) 150 mls @ 100 mls/hr IV ONETIME ONE Stop: 10/30/17 16:45 Last Infusion: 10/30/17 17:35 Dose: Infused Levofloxacin/Dextrose 500 mg/ (Premix) 100 mls @ 100 mls/hr IV Q48H [facility] Sodium Chloride (Normal Saline) 1,000 mls @ 75 mls/hr IV ASDIRECTED [facility] Last Infusion: 10/31/17 14:22 Dose: 75 mls/hr Insulin Aspart (Novolog) 0 unit SUBCUT TIDMEALS [facility] PRN Reason: Protocol Last Admin: 10/31/17 14:14 Dose: 8 units Neomycin/Polymyxin/Hydrocortisone (Cortisporin Otic Susp) 0 ml EARRT QID [facility] Last Admin: 10/31/17 14:15 Dose: 1 drop (Mycophenolate [ Myfortic] 360 Mg) Patients Own Med 0 mg PO BID [facility] Last Admin: 10/31/17 10:18 Dose: 720 mg (Tacrolimus 1 Mg) (Patients Own Med) 1 mg PO BID [facility] Last Admin: 10/31/17 10:19 Dose: 1 mg Sodium Chloride (Saline Flush) 10 ml FLUSH ASDIRECTED PRN PRN Reason: Keep Vein Open Last Admin: 10/30/17 17:56 Dose: 10 ml Warfarin Sodium (Pharmacy To Dose - Warfarin) 1 dose .XX ASDIRECTED [facility] Warfarin Sodium (Coumadin) 5 mg PO ONETIME ONE Stop: 10/30/17 17:31 Last Admin: 10/30/17 17:53 Dose: 5 mg Warfarin Sodium (Coumadin) 2.5 mg PO ONETIME ONE Stop: 10/31/17 14:01 Last Admin: 10/31/17 14:14 Dose: 2.5 mg - Exam General: Alert, Oriented HEENT: Pupils Equal, Pupils Reactive, EOMI, Mucous Membr. Moist/[place] Neck: Supple Lungs: Clear to Auscultation Cardiovascular: Regular Rate, Regular Rhythm GI/Abdominal Exam: Normal Bowel Sounds - Problem List Review Problem List Initiated/Reviewed/Updated: Yes - My Orders Last 24 Hours: My Active Orders 10/31/17 10:30 Acetaminophen [Tylenol] 650 mg PO Q6H PRN 10/31/17 19:00 Blood Glucose Check, Bedside [RC] TIDMEALS Vital Signs [RC] Q6H 10/31/17 21:00 Patient's Own Medication [Ptom] 0 each PO BID Patient's Own Medication [Ptom] See Dose Instructions PO BID 11/01/17 08:00 Insulin Aspart [NovoLOG] See Protocol SUBCUT TIDMEALS 11/01/17 09:16 HYDROmorphone [Dilaudid] 0.5 mg IVPUSH Q2H PRN - Plan Plan:: The patient is a 77-year-old gentleman with a history of diabetes, aortic valve replacement, renal transplant, coronary artery disease. The patient presented with lethargic, falling, acute respiratory failure, deep icterus. Noted to have elevated lactic acid possible sepsis, likely ascites, elevated bilirubin. I think the patient is critically ill. He has acute liver failure, acute renal failure, lactic acidosis and possible sepsis. Significant ascites. Acute hypoxemic respiratory failure likely in part due to due to ascites, possible COPD less likely due to CHF. Discussed with the patient and the patient's of treatment options. They have chosen to adopt comfort care measures. Will descalate medical management, stop IV fluids, stop lab draw Focus on comfort, pain management, bowel regimen, comfortable breathing and antidepressants if necessary. Patient's expresses that she cannot take care of the patient at home. Will start to explore placement options with inpatient placement/hospice.
[2017-11-01] MEDS ORDERED: Levofloxacin/Dextrose 5%-Water 500 MG in Premix Bag 1 BAG IV SCH (16:30)
[2017-11-01] MEDS: Tamsulosin 0.4 MG Cap.ER PO SCH (21:51)
[2017-11-01] MEDS: Acetaminophen 325 MG Tab PO PRN (21:52)
[2017-11-01] MEDS: risperiDONE 1 MG Tab PO SCH (21:52)
[2017-11-02] MEDS: Albuterol/Ipratropium 3.0-0.5 MG/3 ML Neb Soln NEB SCH ×5 (01:51→18:40)
[2017-11-02] MEDS ORDERED: Insulin Aspart 100 Units/ML 3 ML Pen SUBCUT ONE (08:05)
[2017-11-02] MEDS: Insulin Aspart 100 Units/ML 3 ML Pen SUBCUT SCH (08:07)
[2017-11-02] MEDS: MYCOPHENOLATE 360 MG PO SCH (08:45)
[2017-11-02] MEDS: TACROLIMUS 1 MG PO SCH (08:45)
--- NOTE | 2017-11-02 10:24 | PCM.PN ---
- General Info Date of Service: 11/02/17 Admission Dx/Problem (Free Text): Admission Diagnosis/Problem Admission Diagnosis/Problem Palliative care Subjective Update: Patient seen and examined by me. Lying in bed, sleeping. , Daughter and Son (Antonio) at bedside - Review of Systems General: Reports: Other (ROS not obtainable as patient is obtunded. ) - Patient Data Vitals - Most Recent: Last Vital Signs Temp 36.9 C 11/02/17 08:11 Pulse 105 H 11/02/17 08:11 Resp 18 11/02/17 08:11 BP 144/84 H 11/02/17 08:11 Pulse Ox 94 L 11/02/17 08:11 Weight - Most Recent: 63.1 kg I&O - Last 24 Hours: Intake & Output 11/01/17 11/02/17 11/02/17 22:59 06:59 14:59 Intake Total 100 Balance 100 Lab Results Last 24 Hours: Laboratory Results - last 24 hr 11/01/17 11/01/17 11/02/17 Range/Units 11:09 16:41 07:52 POC Glucose 325 H 209 H 402 H* (83-110) mg/dl Med Orders - Current: Current Medications Acetaminophen (Tylenol) 650 mg PO Q6H PRN PRN Reason: Pain (mild 1-3) Last Admin: 11/01/17 21:52 Dose: 650 mg Albuterol/Ipratropium (Duoneb 3.0-0.5 Mg/3 Ml) 3 ml NEB Q6HRRT [facility] Last Admin: 11/02/17 07:29 Dose: 3 ml Hydromorphone HCl (Dilaudid) 0.5 mg IVPUSH Q2H PRN PRN Reason: Pain Risperidone (Risperidal) 1 mg PO BEDTIME [facility] Last Admin: 11/01/17 21:52 Dose: 1 mg Tamsulosin HCl (Flomax) 0.8 mg PO BEDTIME [facility] Last Admin: 11/01/17 21:51 Dose: 0.8 mg Zolpidem Tartrate (Ambien) 5 mg PO BEDTIME PRN PRN Reason: Sleep Discontinued Medications Aspirin (Halfprin) 81 mg PO DAILY [facility] Last Admin: 10/31/17 10:18 Dose: 81 mg Levofloxacin/Dextrose 750 mg/ (Premix) 150 mls @ 100 mls/hr IV ONETIME ONE Stop: 10/30/17 16:45 Last Infusion: 10/30/17 17:35 Dose: Infused Levofloxacin/Dextrose 500 mg/ (Premix) 100 mls @ 100 mls/hr IV Q48H [facility] Sodium Chloride (Normal Saline) 1,000 mls @ 75 mls/hr IV ASDIRECTED [facility] Last Infusion: 10/31/17 14:22 Dose: 75 mls/hr Insulin Aspart (Novolog) 0 unit SUBCUT TIDMEALS [facility] PRN Reason: Protocol Last Admin: 10/31/17 14:14 Dose: 8 units Insulin Aspart (Novolog) 0 unit SUBCUT TIDMEALS [facility] PRN Reason: Protocol Last Admin: 11/02/17 08:07 Dose: Not Given Insulin Aspart (Novolog) 10 unit SUBCUT ONETIME ONE Stop: 11/02/17 08:06 Last Admin: 11/02/17 08:45 Dose: 10 units Neomycin/Polymyxin/Hydrocortisone (Cortisporin Otic Susp) 0 ml EARRT QID [facility] Last Admin: 10/31/17 14:15 Dose: 1 drop (Mycophenolate [ Myfortic] 360 Mg) Patients Own Med 0 mg PO BID [facility] Last Admin: 10/31/17 10:18 Dose: 720 mg (Tacrolimus 1 Mg) (Patients Own Med) 1 mg PO BID [facility] Last Admin: 10/31/17 10:19 Dose: 1 mg Ptom*Tacrolimus 1 (Mg Cap) 0 each PO BID [facility] Last Admin: 11/02/17 08:45 Dose: 1 each Ptom Mycophenolate [address] Tab 0 each PO BID [facility] Last Admin: 11/02/17 08:45 Dose: 1 each Sodium Chloride (Saline Flush) 10 ml FLUSH ASDIRECTED PRN PRN Reason: Keep Vein Open Last Admin: 10/30/17 17:56 Dose: 10 ml Warfarin Sodium (Pharmacy To Dose - Warfarin) 1 dose .XX ASDIRECTED [facility] Warfarin Sodium (Coumadin) 5 mg PO ONETIME ONE Stop: 10/30/17 17:31 Last Admin: 10/30/17 17:53 Dose: 5 mg Warfarin Sodium (Coumadin) 2.5 mg PO ONETIME ONE Stop: 10/31/17 14:01 Last Admin: 10/31/17 14:14 Dose: 2.5 mg - Exam General: Obtunded Cardiovascular: Regular Rate, Regular Rhythm - Problem List Review Problem List Initiated/Reviewed/Updated: Yes - Plan Plan:: The patient is a 77-year-old gentleman with a history of diabetes, aortic valve replacement, renal transplant, coronary artery disease. The patient presented with lethargic, falling, acute respiratory failure, deep icterus. Noted to have elevated lactic acid possible sepsis, likely ascites, elevated bilirubin. I think the patient is critically ill. He has acute liver failure, acute renal failure, lactic acidosis and possible sepsis. Significant ascites. Acute hypoxemic respiratory failure likely in part due to due to ascites, possible COPD less likely due to CHF. Discussed with the patient and the patient's of treatment options. They have chosen to adopt comfort care measures. Will descalate medical management, stop IV fluids, stop lab draw Focus on comfort, pain management, bowel regimen, comfortable breathing and antidepressants if necessary. Patient's expresses that she cannot take care of the patient at home. Will start to explore placement options with inpatient placement/hospice.
[2017-11-02] MEDS: Tamsulosin 0.4 MG Cap.ER PO SCH (21:48)
[2017-11-02] MEDS: risperiDONE 1 MG Tab PO SCH (21:49)
[2017-11-03] MEDS: Albuterol/Ipratropium 3.0-0.5 MG/3 ML Neb Soln NEB SCH ×4 (01:16→17:13)
[2017-11-03] MEDS: HYDROmorphone 0.5 MG/0.5 ML Syringe IVPUSH PRN ×4 (04:09→18:08)
--- NOTE | 2017-11-03 10:19 | PCM.PN ---
- General Info Admission Dx/Problem (Free Text): Admission Diagnosis/Problem Admission Diagnosis/Problem Palliative care Subjective Update: Patient seen and examined by me. Lying in bed, sleeping. Daughters and Son (Antonio ) at bedside Overnight, patient was mostly asleep. Had one dose of dilaudid in the early hours of the morning - Review of Systems Systems Review Comment:: ROS not obtainable as patient not arousable - Patient Data Vitals - Most Recent: Last Vital Signs Temp 36.9 C 11/03/17 08:26 Pulse 113 H 11/03/17 08:26 Resp 20 11/03/17 08:26 BP 139/94 H 11/03/17 08:26 Pulse Ox 97 11/03/17 08:26 Weight - Most Recent: 63.1 kg I&O - Last 24 Hours: Intake & Output 11/02/17 11/03/17 11/03/17 22:59 06:59 14:59 Intake Total 50 Balance 50 Med Orders - Current: Current Medications Acetaminophen (Tylenol) 650 mg PO Q6H PRN PRN Reason: Pain (mild 1-3) Last Admin: 11/01/17 21:52 Dose: 650 mg Albuterol/Ipratropium (Duoneb 3.0-0.5 Mg/3 Ml) 3 ml NEB Q6HRRT [facility] Last Admin: 11/03/17 07:38 Dose: 3 ml Hydromorphone HCl (Dilaudid) 0.5 mg IVPUSH Q2H PRN PRN Reason: Pain Last Admin: 11/03/17 04:09 Dose: 0.5 mg Zolpidem Tartrate (Ambien) 5 mg PO BEDTIME PRN PRN Reason: Sleep Discontinued Medications Aspirin (Halfprin) 81 mg PO DAILY [facility] Last Admin: 10/31/17 10:18 Dose: 81 mg Levofloxacin/Dextrose 750 mg/ (Premix) 150 mls @ 100 mls/hr IV ONETIME ONE Stop: 10/30/17 16:45 Last Infusion: 10/30/17 17:35 Dose: Infused Levofloxacin/Dextrose 500 mg/ (Premix) 100 mls @ 100 mls/hr IV Q48H [facility] Sodium Chloride (Normal Saline) 1,000 mls @ 75 mls/hr IV ASDIRECTED [facility] Last Infusion: 10/31/17 14:22 Dose: 75 mls/hr Insulin Aspart (Novolog) 0 unit SUBCUT TIDMEALS [facility] PRN Reason: Protocol Last Admin: 10/31/17 14:14 Dose: 8 units Insulin Aspart (Novolog) 0 unit SUBCUT TIDMEALS [facility] PRN Reason: Protocol Last Admin: 11/02/17 08:07 Dose: Not Given Insulin Aspart (Novolog) 10 unit SUBCUT ONETIME ONE Stop: 11/02/17 08:06 Last Admin: 11/02/17 08:45 Dose: 10 units Neomycin/Polymyxin/Hydrocortisone (Cortisporin Otic Susp) 0 ml EARRT QID [facility] Last Admin: 10/31/17 14:15 Dose: 1 drop (Mycophenolate [ Myfortic] 360 Mg) Patients Own Med 0 mg PO BID [facility] Last Admin: 10/31/17 10:18 Dose: 720 mg (Tacrolimus 1 Mg) (Patients Own Med) 1 mg PO BID [facility] Last Admin: 10/31/17 10:19 Dose: 1 mg Ptom*Tacrolimus 1 (Mg Cap) 0 each PO BID [facility] Last Admin: 11/02/17 08:45 Dose: 1 each Ptom Mycophenolate [address] Tab 0 each PO BID [facility] Last Admin: 11/02/17 08:45 Dose: 1 each Risperidone (Risperidal) 1 mg PO BEDTIME [facility] Last Admin: 11/02/17 21:49 Dose: Not Given Sodium Chloride (Saline Flush) 10 ml FLUSH ASDIRECTED PRN PRN Reason: Keep Vein Open Last Admin: 10/30/17 17:56 Dose: 10 ml Tamsulosin HCl (Flomax) 0.8 mg PO BEDTIME [facility] Last Admin: 11/02/17 21:48 Dose: Not Given Warfarin Sodium (Pharmacy To Dose - Warfarin) 1 dose .XX ASDIRECTED [facility] Warfarin Sodium (Coumadin) 5 mg PO ONETIME ONE Stop: 10/30/17 17:31 Last Admin: 10/30/17 17:53 Dose: 5 mg Warfarin Sodium (Coumadin) 2.5 mg PO ONETIME ONE Stop: 10/31/17 14:01 Last Admin: 10/31/17 14:14 Dose: 2.5 mg - Exam Lungs: Clear to Auscultation Cardiovascular: Regular Rate GI/Abdominal Exam: Normal Bowel Sounds - Problem List Review Problem List Initiated/Reviewed/Updated: Yes - Plan Plan:: The patient is a 77-year-old gentleman with a history of diabetes, aortic valve replacement, renal transplant, coronary artery disease. #Comfort care continue comfort care management, pain meds. 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
[2017-11-04] MEDS: HYDROmorphone 0.5 MG/0.5 ML Syringe IVPUSH PRN ×4 (00:01→14:42)
[2017-11-04] MEDS: Albuterol/Ipratropium 3.0-0.5 MG/3 ML Neb Soln NEB SCH ×3 (00:17→14:42)
[2017-11-04 07:57] VITALS: BP 147/82
--- NOTE | 2017-11-04 12:14 | PCM.PN ---
- General Info Admission Dx/Problem (Free Text): Admission Diagnosis/Problem Admission Diagnosis/Problem Palliative care Subjective Update: Patient seen and examined by me. Lying in bed, sleeping. , Daughters and Son (Antonio) at bedside Overnight, patient was mostly asleep. Had one dose of dilaudid in the early hours of the morning Having agonal breathings from time to time - Review of Systems General: Reports: Other (unable to give ROS as not arousable) - Patient Data Vitals - Most Recent: Last Vital Signs Temp 37.6 C 11/04/17 07:56 Pulse 116 H 11/04/17 07:56 Resp 24 H 11/04/17 07:56 BP 147/82 H 11/04/17 07:56 Pulse Ox 98 11/04/17 07:56 Weight - Most Recent: 63.1 kg Med Orders - Current: Current Medications Acetaminophen (Tylenol) 650 mg PO Q6H PRN PRN Reason: Pain (mild 1-3) Last Admin: 11/01/17 21:52 Dose: 650 mg Albuterol/Ipratropium (Duoneb 3.0-0.5 Mg/3 Ml) 3 ml NEB Q6HRRT [facility] Last Admin: 11/04/17 00:17 Dose: 3 ml Hydromorphone HCl (Dilaudid) 0.5 mg IVPUSH Q2H PRN PRN Reason: Pain Last Admin: 11/04/17 10:37 Dose: 0.5 mg Zolpidem Tartrate (Ambien) 5 mg PO BEDTIME PRN PRN Reason: Sleep Discontinued Medications Aspirin (Halfprin) 81 mg PO DAILY [facility] Last Admin: 10/31/17 10:18 Dose: 81 mg Levofloxacin/Dextrose 750 mg/ (Premix) 150 mls @ 100 mls/hr IV ONETIME ONE Stop: 10/30/17 16:45 Last Infusion: 10/30/17 17:35 Dose: Infused Levofloxacin/Dextrose 500 mg/ (Premix) 100 mls @ 100 mls/hr IV Q48H [facility] Sodium Chloride (Normal Saline) 1,000 mls @ 75 mls/hr IV ASDIRECTED [facility] Last Infusion: 10/31/17 14:22 Dose: 75 mls/hr Insulin Aspart (Novolog) 0 unit SUBCUT TIDMEALS [facility] PRN Reason: Protocol Last Admin: 10/31/17 14:14 Dose: 8 units Insulin Aspart (Novolog) 0 unit SUBCUT TIDMEALS [facility] PRN Reason: Protocol Last Admin: 11/02/17 08:07 Dose: Not Given Insulin Aspart (Novolog) 10 unit SUBCUT ONETIME ONE Stop: 11/02/17 08:06 Last Admin: 11/02/17 08:45 Dose: 10 units Neomycin/Polymyxin/Hydrocortisone (Cortisporin Otic Susp) 0 ml EARRT QID [facility] Last Admin: 10/31/17 14:15 Dose: 1 drop (Mycophenolate [ Myfortic] 360 Mg) Patients Own Med 0 mg PO BID [facility] Last Admin: 10/31/17 10:18 Dose: 720 mg (Tacrolimus 1 Mg) (Patients Own Med) 1 mg PO BID [facility] Last Admin: 10/31/17 10:19 Dose: 1 mg Ptom*Tacrolimus 1 (Mg Cap) 0 each PO BID [facility] Last Admin: 11/02/17 08:45 Dose: 1 each Ptom Mycophenolate [address] Tab 0 each PO BID [facility] Last Admin: 11/02/17 08:45 Dose: 1 each Risperidone (Risperidal) 1 mg PO BEDTIME [facility] Last Admin: 11/02/17 21:49 Dose: Not Given Sodium Chloride (Saline Flush) 10 ml FLUSH ASDIRECTED PRN PRN Reason: Keep Vein Open Last Admin: 10/30/17 17:56 Dose: 10 ml Tamsulosin HCl (Flomax) 0.8 mg PO BEDTIME [facility] Last Admin: 11/02/17 21:48 Dose: Not Given Warfarin Sodium (Pharmacy To Dose - Warfarin) 1 dose .XX ASDIRECTED [facility] Warfarin Sodium (Coumadin) 5 mg PO ONETIME ONE Stop: 10/30/17 17:31 Last Admin: 10/30/17 17:53 Dose: 5 mg Warfarin Sodium (Coumadin) 2.5 mg PO ONETIME ONE Stop: 10/31/17 14:01 Last Admin: 10/31/17 14:14 Dose: 2.5 mg - Exam General: Obtunded Neck: Supple Cardiovascular: Regular Rate, Regular Rhythm GI/Abdominal Exam: Normal Bowel Sounds - Problem List Review Problem List Initiated/Reviewed/Updated: Yes - Plan Plan:: The patient is a 77-year-old gentleman with a history of diabetes, aortic valve replacement, renal transplant, coronary artery disease. #Comfort care continue comfort care management, pain meds. 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
--- NOTE | 2017-11-06 12:52 | PCM.DCSUM1 ---
Discharge Summary - Hospital Course Free Text/Narrative:: The patient is a 77-year-old gentleman with a history of diabetes, aortic valve replacement, renal transplant, coronary artery disease. The patient presented with lethargic, falling, acute respiratory failure, deep icterus. Patient has clinical features of sepsis and multiorgan dysfunction Family opted for palliative care and comfort care measures. IV pain medications were used to acheive comfort He was transitioned to palliative care in swing bed - Discharge Data Discharge Date: 11/04/17 Discharge Disposition: DC/Tfer W/I Hosp To [place] [id number] Condition: Poor - Discharge Plan Home Medications: Home Meds . [No Known Home Meds] 11/04/17 [History] - Discharge Summary/Plan Comment DC Time >30 min.: Yes - General Info Admission Dx/Problem (Free Text: Admission Diagnosis/Problem Admission Diagnosis/Problem Palliative care Subjective Update: Patient seen and examined by me. Lying in bed, sleeping. , Daughters and Son (Antonio) at bedside Overnight, patient was mostly asleep. Had one dose of dilaudid in the early hours of the morning Having agonal breathings from time to time - Patient Data Vitals - Most Recent: Last Vital Signs Temp 37.6 C 11/04/17 07:56 Pulse 116 H 11/04/17 07:56 Resp 24 H 11/04/17 07:56 BP 147/82 H 11/04/17 07:56 Pulse Ox 98 11/04/17 07:56 Weight - Most Recent: 63.1 kg Med Orders - Current: Current Medications Discontinued Medications Acetaminophen (Tylenol) 650 mg PO Q6H PRN PRN Reason: Pain (mild 1-3) Last Admin: 11/01/17 21:52 Dose: 650 mg Albuterol/Ipratropium (Duoneb 3.0-0.5 Mg/3 Ml) 3 ml NEB Q6HRRT [facility] Last Admin: 11/04/17 14:42 Dose: Not Given Aspirin (Halfprin) 81 mg PO DAILY [facility] Last Admin: 10/31/17 10:18 Dose: 81 mg Hydromorphone HCl (Dilaudid) 0.5 mg IVPUSH Q2H PRN PRN Reason: Pain Last Admin: 11/04/17 14:42 Dose: 0.5 mg Levofloxacin/Dextrose 750 mg/ (Premix) 150 mls @ 100 mls/hr IV ONETIME ONE Stop: 10/30/17 16:45 Last Infusion: 10/30/17 17:35 Dose: Infused Levofloxacin/Dextrose 500 mg/ (Premix) 100 mls @ 100 mls/hr IV Q48H [facility] Sodium Chloride (Normal Saline) 1,000 mls @ 75 mls/hr IV ASDIRECTED [facility] Last Infusion: 10/31/17 14:22 Dose: 75 mls/hr Insulin Aspart (Novolog) 0 unit SUBCUT TIDMEALS [facility] PRN Reason: Protocol Last Admin: 10/31/17 14:14 Dose: 8 units Insulin Aspart (Novolog) 0 unit SUBCUT TIDMEALS [facility] PRN Reason: Protocol Last Admin: 11/02/17 08:07 Dose: Not Given Insulin Aspart (Novolog) 10 unit SUBCUT ONETIME ONE Stop: 11/02/17 08:06 Last Admin: 11/02/17 08:45 Dose: 10 units Neomycin/Polymyxin/Hydrocortisone (Cortisporin Otic Susp) 0 ml EARRT QID [facility] Last Admin: 10/31/17 14:15 Dose: 1 drop (Mycophenolate [ Myfortic] 360 Mg) Patients Own Med 0 mg PO BID [facility] Last Admin: 10/31/17 10:18 Dose: 720 mg (Tacrolimus 1 Mg) (Patients Own Med) 1 mg PO BID [facility] Last Admin: 10/31/17 10:19 Dose: 1 mg Ptom*Tacrolimus 1 (Mg Cap) 0 each PO BID [facility] Last Admin: 11/02/17 08:45 Dose: 1 each Ptom Mycophenolate [address] Tab 0 each PO BID [facility] Last Admin: 11/02/17 08:45 Dose: 1 each Risperidone (Risperidal) 1 mg PO BEDTIME [facility] Last Admin: 11/02/17 21:49 Dose: Not Given Sodium Chloride (Saline Flush) 10 ml FLUSH ASDIRECTED PRN PRN Reason: Keep Vein Open Last Admin: 10/30/17 17:56 Dose: 10 ml Tamsulosin HCl (Flomax) 0.8 mg PO BEDTIME [facility] Last Admin: 11/02/17 21:48 Dose: Not Given Warfarin Sodium (Pharmacy To Dose - Warfarin) 1 dose .XX ASDIRECTED [facility] Warfarin Sodium (Coumadin) 5 mg PO ONETIME ONE Stop: 10/30/17 17:31 Last Admin: 10/30/17 17:53 Dose: 5 mg Warfarin Sodium (Coumadin) 2.5 mg PO ONETIME ONE Stop: 10/31/17 14:01 Last Admin: 10/31/17 14:14 Dose: 2.5 mg Zolpidem Tartrate (Ambien) 5 mg PO BEDTIME PRN PRN Reason: Sleep - Exam General: Reports: Obtunded Neck: Reports: Supple Lungs: Reports: Clear to Auscultation Cardiovascular: Reports: Regular Rate, Regular Rhythm *Q Meaningful Use (DIS) - VTE *Q VTE Criteria *Q: - Stroke *Q Stroke Criteria *Q: - AMI *Q AMI Criteria *Q:
--- NOTE | 2017-11-07 15:29 | EKG ---
10/30/2017 - JOHAN JOLLEY - FINDINGS: EKG, per my reading, shows left bundle-branch block. [facility] /[id number]
== END 2017-11-04 15:05 | disposition swing bed (61) | DRG 871 ==
LOC: DL.ED 15:23 → UNDOADMIN 15:30 → DL.MS 15:30
PROVIDERS: ADMIT Internal Medicine; ATTEND Internal Medicine
DX: J40 Bronchitis, not specified as acute or chronic (principal); A41.9 Sepsis, unspecified organism; D72.825 Bandemia; J96.01 Acute respiratory failure with hypoxia; K72.00 Acute and subacute hepatic failure without coma; N18.6 End stage renal disease; N17.9 Acute kidney failure, unspecified; Z94.0 Kidney transplant status; R17 Unspecified jaundice; E87.2 Acidosis; R18.8 Other ascites; E10.22 Type 1 diabetes mellitus with diabetic chronic kidney disease; I12.0 Hypertensive chronic kidney disease with stage 5 chronic kidney disease or end stage renal disease; Z99.2 Dependence on renal dialysis; Z87.891 Personal history of nicotine dependence; I25.10 Atherosclerotic heart disease of native coronary artery without angina pectoris; Z95.5 Presence of coronary angioplasty implant and graft; E80.6 Other disorders of bilirubin metabolism; E11.9 Type 2 diabetes mellitus without complications; Z91.81 History of falling; Z51.5 Encounter for palliative care; Z95.2 Presence of prosthetic heart valve; Z79.01 Long term (current) use of anticoagulants; H54.7 Unspecified visual loss; E78.00 Pure hypercholesterolemia, unspecified; F32.9 Major depressive disorder, single episode, unspecified; D64.9 Anemia, unspecified; Z85.528 Personal history of other malignant neoplasm of kidney; Z79.82 Long term (current) use of aspirin; Z79.4 Long term (current) use of insulin; Z79.899 Other long term (current) drug therapy; Z88.8 Allergy status to other drugs, medicaments and biological substances; S01.111A Laceration without foreign body of right eyelid and periocular area, initial encounter; S51.011A Laceration without foreign body of right elbow, initial encounter; W18.30XA Fall on same level, unspecified, initial encounter; Y92.002 Bathroom of unspecified non-institutional (private) residence as the place of occurrence of the external cause
CPT/HCPCS: 36415; 70450; 71045; 72125; 80053; 83605; 84484; 85025; 85610; 87040 ×2; 93005; 93010; 99285; 99291; 99292; J1956; 80048; 82962; 94640; A9270-GY; J1170; J1815-GY; J7030; J7050

== ENCOUNTER 2017-11-04 12:58 | Inpatient (IN) | payer MEDICARE, BC ==
[2017-11-04] MEDS ORDERED: Zolpidem 5 MG Tab PO PRN (14:44)
[2017-11-04] MEDS ORDERED: HYDROmorphone 0.5 MG/0.5 ML Syringe IVPUSH PRN (14:44)
[2017-11-04] MEDS ORDERED: Acetaminophen 325 MG Tab PO PRN (14:44)
[2017-11-04] MEDS ORDERED: Sodium Chloride 0.9% 10 ML Syringe FLUSH PRN (15:09)
[2017-11-04] MEDS ORDERED: fentaNYL 100 MCG/2 ML SDV IVPUSH ONE (19:42)
[2017-11-04] MEDS: fentaNYL 100 MCG/2 ML SDV IVPUSH PRN ×3 (20:03→22:59)
[2017-11-04] MEDS ORDERED: Ondansetron 4 MG/2 ML SDV IV PRN (20:04)
[2017-11-05] MEDS: fentaNYL 100 MCG/2 ML SDV IVPUSH PRN ×4 (00:57→03:02)
[2017-11-05] MEDS: fentaNYL 100 MCG/2 ML SDV IVPUSH SCH ×8 (03:47→10:38)
[2017-11-05] MEDS ORDERED: fentaNYL/Normal Saline 600 MCG/30 ML PCA Vial IV SCH ×3 (09:30→13:30)
--- NOTE | 2017-11-05 09:54 | PCM.HP ---
H&P History of Present Illness - General Date of Service: 11/05/17 Admit Problem/Dx: Admission Diagnosis/Problem Admission Diagnosis/Problem Palliative care Source of Information: Family History Limitations: Reports: Altered Mental Status - History of Present Illness Initial Comments - Free Text/Narative: The patient is a 77-year-old gentleman with complicated medical history including liver transplant, diabetes, valve replacement on chronic anticoagulation. Patient was admitted after a fall with lethargy, acute respiratory failure, deep icterus, lactic acidosis, possible sepsis, significant ascites, KANDICE, failure to thrive, altered mental status and decline in function Recently discharged from our facility and transitioned to swing bed after family has opted for comfort care measures. Generalized Pain Score (Numeric/FACES): 8 - Related Data Allergies/Adverse Reactions: Allergies Allergy/AdvReac Type Severity Reaction Status Date / Time Dmilcsh-Bka-Qlc Reductase AdvReac Severe Severe Verified 11/04/17 15:07 Inhibitor muscle aches to all statins. Home Medications: Home Meds . [No Known Home Meds] 11/04/17 [History] Past Medical History HEENT History: Reports: Impaired Vision, Macular Degeneration, Retinal Detachment Cardiovascular History: Reports: Heart Valve Replacement, High Cholesterol, Hypertension, Stents Respiratory History: Reports: None Gastrointestinal History: Reports: None Genitourinary History: Reports: BPH, Other (See Below) Other Genitourinary History: hx kidney transplant Musculoskeletal History: Reports: Arthritis, Gout Neurological History: Reports: None Psychiatric History: Reports: Depression Endocrine/Metabolic History: Reports: Diabetes, Type I Hematologic History: Reports: Anemia Immunologic History: Reports: None Oncologic (Cancer) History: Reports: Basal Cell Carcinoma, Renal, Other (See Below) Other Oncologic History: renal transplant Dermatologic History: Reports: Other (See Below) Other Dermatologic History: skin cancer left cheek - Infectious Disease History Infectious Disease History: Reports: Shingles - Past Surgical History HEENT Surgical History: Reports: Cataract Surgery, Other (See Below) Other HEENT Surgeries/Procedures: sx for detached retina Cardiovascular Surgical History: Reports: Coronary Artery Stent Respiratory Surgical History: Reports: None Male Surgical History: Reports: Nephrectomy Endocrine Surgical History: Reports: None Neurological Surgical History: Reports: None Dermatological Surgical History: Reports: Other (See Below) Social & Family History - Family History Family Medical History: Noncontributory - Tobacco Use Smoking Status *Q: Never Smoker Years of Tobacco use: 15 Used Tobacco, but Quit: Yes Month Tobacco Last Used: August Second Hand Smoke Exposure: No - Caffeine Use Caffeine Use: Reports: None - Alcohol Use Days Per Week of Alcohol Use: 0 - Recreational Drug Use Recreational Drug Use: No - Living Situation & Occupation Living situation: Reports: , with Family Occupation: Disabled H&P Review of Systems - Review of Systems: Review Of Systems: Unable To Obtain Exam - Exam Exam: See Below - Vital Signs Vital Signs: Last Vital Signs Temp 37.7 C 11/05/17 07:26 Pulse 104 H 11/05/17 07:26 Resp 20 11/05/17 07:26 BP 123/80 11/05/17 07:26 Pulse Ox 95 11/05/17 07:26 Weight: 63.1 kg - Exam General: Obtunded Neck: Supple Lungs: Clear to Auscultation Cardiovascular: Regular Rate, Regular Rhythm GI/Abdominal Exam: Normal Bowel Sounds *Q Meaningful Use (ADM) - VTE *Q VTE Criteria *Q: - Stroke *Q Stroke Criteria *Q: - AMI *Q AMI Criteria *Q: Problem List Initiated/Reviewed/Updated: Yes Orders Last 24hrs: Active Orders 24 hr Category Date Time Status Patient Status [ADT] Routine ADT 11/04/17 15:05 Active Oxygen Therapy [RC] PRN Care 11/04/17 14:44 Active Up With Assistance [RC] ASDIRECTED Care 11/04/17 14:44 Active Vital Signs [RC] QSHIFT Care 11/04/17 14:46 Active Regular Diet [DIET] Diet 11/04/17 Dinner Active Ondansetron [Zofran] Med 11/04/17 20:04 Active 4 mg IV Q4H PRN Sodium Chloride 0.9% [Saline Flush] Med 11/04/17 15:09 Active 10 ml FLUSH ASDIRECTED PRN fentaNYL [Sublimaze] Med 11/05/17 03:30 Active 50 mcg IVPUSH Q1H fentaNYL/Normal Saline [fentaNYL in NS 20 MCG/ML 30 ML Med 11/05/17 09:30 Active BRIDGE CONTRACTOR] 0 mcg IV ASDIRECTED Saline Lock Insert [OM.PC] Routine Oth 11/04/17 15:09 Ordered Resuscitation Status Routine Resus Stat 11/04/17 15:09 Ordered Medication Orders Fentanyl (Sublimaze) 50 mcg IVPUSH Q1H [facility] Last Admin: 11/05/17 09:44 Dose: 50 mcg Admin: 11/05/17 08:23 Dose: 50 mcg Admin: 11/05/17 07:23 Dose: 50 mcg Admin: 11/05/17 06:33 Dose: 50 mcg Admin: 11/05/17 05:33 Dose: 50 mcg Admin: 11/05/17 04:30 Dose: 50 mcg Admin: 11/05/17 03:47 Dose: 50 mcg Fentanyl Citrate (Fentanyl In Ns 20 Mcg/Ml 30 Ml Surgical Territory Manager) 0 mcg IV ASDIRECTED [facility] PRN Reason: Protocol Ondansetron HCl (Zofran) 4 mg IV Q4H PRN PRN Reason: Nausea/Vomiting Last Admin: 11/04/17 20:18 Dose: 4 mg Sodium Chloride (Saline Flush) 10 ml FLUSH ASDIRECTED PRN PRN Reason: Keep Vein Open Assessment/Plan Comment:: Comfort care measure FEntanyl BRIDGE CONTRACTOR, fentanyl PRN mouth swabs for comfort Teacher Cclc consult for family
[2017-11-05] MEDS ORDERED: fentaNYL 100 MCG/2 ML SDV IVPUSH PRN ×2 (10:42→10:47)
[2017-11-05] MEDS ORDERED: fentaNYL 100 MCG/2 ML SDV IVPUSH SCH ×2 (10:45→13:30)
[2017-11-05] MEDS: Morphine PF 30 MG/30 ML PCA Vial IV SCH ×2 (14:57→21:26)
[2017-11-05 15:40] VITALS: BP 100/66
[2017-11-05] MEDS ORDERED: Atropine 1% Ophth Soln 5 ML BOTTLE SL PRN (18:17)
--- NOTE | 2017-11-06 10:03 | PCM.DCSUM1 ---
Discharge Summary - Hospital Course Free Text/Narrative:: The patient is a 77-year-old gentleman with a history of diabetes, aortic valve replacement, renal transplant, coronary artery disease. The patient presented with lethargic, falling, acute respiratory failure, deep icterus. Patient has clinical features of sepsis and multiorgan dysfunction Family opted for palliative care and comfort care measures. IV pain medications were used to acheive comfort Patient on 11/06/2017 at 3.04 AM - Discharge Data Discharge Date: 11/06/17 Discharge Disposition: 20 Preliminary Cause of *Q: Sepsis & Multi System Organ Failure Condition: - Discharge Plan Home Medications: Home Meds . [No Known Home Meds] 11/04/17 [History] - Discharge Summary/Plan Comment DC Time >30 min.: Yes - Patient Data Vitals - Most Recent: Last Vital Signs Temp 37.6 C 11/04/17 07:56 Pulse 116 H 11/04/17 07:56 Resp 24 H 11/04/17 07:56 BP 147/82 H 11/04/17 07:56 Pulse Ox 98 11/04/17 07:56 Weight - Most Recent: 63.1 kg Med Orders - Current: Current Medications Discontinued Medications Acetaminophen (Tylenol) 650 mg PO Q6H PRN PRN Reason: Pain (mild 1-3) Last Admin: 11/01/17 21:52 Dose: 650 mg Albuterol/Ipratropium (Duoneb 3.0-0.5 Mg/3 Ml) 3 ml NEB Q6HRRT [facility] Last Admin: 11/04/17 14:42 Dose: Not Given Aspirin (Halfprin) 81 mg PO DAILY [facility] Last Admin: 10/31/17 10:18 Dose: 81 mg Hydromorphone HCl (Dilaudid) 0.5 mg IVPUSH Q2H PRN PRN Reason: Pain Last Admin: 11/04/17 14:42 Dose: 0.5 mg Levofloxacin/Dextrose 750 mg/ (Premix) 150 mls @ 100 mls/hr IV ONETIME ONE Stop: 10/30/17 16:45 Last Infusion: 10/30/17 17:35 Dose: Infused Levofloxacin/Dextrose 500 mg/ (Premix) 100 mls @ 100 mls/hr IV Q48H [facility] Sodium Chloride (Normal Saline) 1,000 mls @ 75 mls/hr IV ASDIRECTED [facility] Last Infusion: 10/31/17 14:22 Dose: 75 mls/hr Insulin Aspart (Novolog) 0 unit SUBCUT TIDMEALS [facility] PRN Reason: Protocol Last Admin: 10/31/17 14:14 Dose: 8 units Insulin Aspart (Novolog) 0 unit SUBCUT TIDMEALS [facility] PRN Reason: Protocol Last Admin: 11/02/17 08:07 Dose: Not Given Insulin Aspart (Novolog) 10 unit SUBCUT ONETIME ONE Stop: 11/02/17 08:06 Last Admin: 11/02/17 08:45 Dose: 10 units Neomycin/Polymyxin/Hydrocortisone (Cortisporin Otic Susp) 0 ml EARRT QID [facility] Last Admin: 10/31/17 14:15 Dose: 1 drop (Mycophenolate [ Myfortic] 360 Mg) Patients Own Med 0 mg PO BID [facility] Last Admin: 10/31/17 10:18 Dose: 720 mg (Tacrolimus 1 Mg) (Patients Own Med) 1 mg PO BID [facility] Last Admin: 10/31/17 10:19 Dose: 1 mg Ptom*Tacrolimus 1 (Mg Cap) 0 each PO BID [facility] Last Admin: 11/02/17 08:45 Dose: 1 each Ptom Mycophenolate [address] Tab 0 each PO BID [facility] Last Admin: 11/02/17 08:45 Dose: 1 each Risperidone (Risperidal) 1 mg PO BEDTIME [facility] Last Admin: 11/02/17 21:49 Dose: Not Given Sodium Chloride (Saline Flush) 10 ml FLUSH ASDIRECTED PRN PRN Reason: Keep Vein Open Last Admin: 10/30/17 17:56 Dose: 10 ml Tamsulosin HCl (Flomax) 0.8 mg PO BEDTIME [facility] Last Admin: 11/02/17 21:48 Dose: Not Given Warfarin Sodium (Pharmacy To Dose - Warfarin) 1 dose .XX ASDIRECTED [facility] Warfarin Sodium (Coumadin) 5 mg PO ONETIME ONE Stop: 10/30/17 17:31 Last Admin: 10/30/17 17:53 Dose: 5 mg Warfarin Sodium (Coumadin) 2.5 mg PO ONETIME ONE Stop: 10/31/17 14:01 Last Admin: 10/31/17 14:14 Dose: 2.5 mg Zolpidem Tartrate (Ambien) 5 mg PO BEDTIME PRN PRN Reason: Sleep *Q Meaningful Use (DIS) - VTE *Q VTE Criteria *Q: - Stroke *Q Stroke Criteria *Q: - AMI *Q AMI Criteria *Q:
== END 2017-11-06 05:43 | disposition expired | DRG 871 ==
LOC: DL.MS 14:44
PROVIDERS: ADMIT Hospitalist; ATTEND Hospitalist
DX: A41.9 Sepsis, unspecified organism (principal); J96.00 Acute respiratory failure, unspecified whether with hypoxia or hypercapnia; R17 Unspecified jaundice; Z94.4 Liver transplant status; N17.9 Acute kidney failure, unspecified; E87.2 Acidosis; R18.8 Other ascites; Z94.0 Kidney transplant status; Z91.81 History of falling; E11.9 Type 2 diabetes mellitus without complications; Z95.2 Presence of prosthetic heart valve; R41.82 Altered mental status, unspecified; R62.7 Adult failure to thrive; Z51.5 Encounter for palliative care; R53.83 Other fatigue; H35.30 Unspecified macular degeneration; E78.00 Pure hypercholesterolemia, unspecified; Z95.5 Presence of coronary angioplasty implant and graft; N40.0 Benign prostatic hyperplasia without lower urinary tract symptoms; M19.90 Unspecified osteoarthritis, unspecified site; F32.9 Major depressive disorder, single episode, unspecified; D64.9 Anemia, unspecified; Z87.891 Personal history of nicotine dependence
CPT/HCPCS: 99316; A9270-GY; J1170; J2274; J2405; J3010